=== PATIENT | female | born 1980 | race Caucasian/White ===

== ENCOUNTER 2022-09-13 09:56 | Day surgery (SDC) | payer BC ==
[~2022-09-13 09:56] MED LIST: DEXAMETHASONE SOD PHOSPHATE 4 MG/ML 1 ML VIAL IV ONE; DEXAMETHASONE SOD PHOSPHATE 4 MG/ML 1 ML VIAL IV PRN; FAMOTIDINE 20 MG/2 ML VIAL IV PRN; ONDANSETRON 4 MG/2 ML VIAL IVP ONE; ONDANSETRON 4 MG/2 ML VIAL IVP PRN; ceFAZolin 3 GM in SODIUM CHLORIDE 0.9% 100 ML IVPB PRN; metroNIDAZOLE-NS PMX 500 MG in SALINE 1 100ML.BAG IVPB PRN
[2022-09-13] MEDS: LACTATED RINGERS 1,000 ML IV SCH (10:30)
[2022-09-13 10:35] LABS: Basophils % (A) 1 %; Eosinophils # (A) 0.2 k/uL (0-0.7); Eosinophils % (A) 3 %; HCT 43.2 % (34.0-46.0); HGB 14.5 gm/dL (11.4-16.0); Lymphocytes # (A) 2.1 k/uL (1.0-4.8); Lymphocytes % (A) 35 %; MCH 29.4 pg (25.0-35.0); MCHC 33.6 g/dL (31.0-37.0); MCV 87.6 fL (80.0-100.0); Mean Platelet Volume 8.7; Monocytes # (A) 0.4 k/uL (0-1.0); Monocytes % (A) 6 %; Neutrophils # (A) 3.3 k/uL (1.3-7.7); Neutrophils % (A) 54 %; Platelet Count 215 k/uL (150-450); RBC 4.93 m/uL (3.80-5.40); RDW 12.7 % (11.5-15.5); WBC 6.1 k/uL (3.8-10.6)
[2022-09-13 10:46] LABS: ALT 18 U/L (4-34); AST 27 U/L (14-36); African American GFR (CKD) >90 (>60 ml/min/1.73 sqM); Albumin 4.7 g/dL (3.5-5.0); Alkaline Phosphatase 76 U/L (38-126); Anion Gap 13 mmol/L; Blood Urea Nitrogen 13 mg/dL (7-17); Calcium 9.1 mg/dL (8.4-10.2); Carbon Dioxide 26 mmol/L (22-30); Chloride 100 mmol/L (98-107); Glucose 97 mg/dL (74-99); Non-African American GFR(CKD) >90 (>60 ml/min/1.73 sqM); Potassium 4.3 mmol/L (3.5-5.1); Sodium 139 mmol/L (137-145); Total Bilirubin 1.3 mg/dL (0.2-1.3); Total Protein 7.8 g/dL (6.3-8.2)
[2022-09-13] MEDS ORDERED: MIDAZOLAM 2 MG/2 ML VIAL IVP ONE (10:50)
[2022-09-13] MEDS ORDERED: SCOPOLAMINE 1 MG/72 HR PATCH TRANSDERM ONE (10:50)
[2022-09-13] MEDS ORDERED: PROPOFOL 10 MG/ML 20 ML VIAL IV ONE (10:58)
[2022-09-13] MEDS ORDERED: fentaNYL (PF) 50 MCG/ML 2 ML AMP ONE (10:58)
[2022-09-13] MEDS ORDERED: KETAMINE 10 MG/ML 20 ML VIAL ONE (10:58)
[2022-09-13] MEDS ORDERED: SUCCINYLCHOLINE CHLORIDE 200 MG/10 ML VIAL IV ONE (10:58)
[2022-09-13] MEDS ORDERED: diphenhydrAMINE 50 MG/ML 1 ML VIAL ONE (10:58)
[2022-09-13] MEDS ORDERED: LIDOCAINE 2% INJ 20 MG/ML (2 ML VIAL) ONE (10:58)
[2022-09-13] MEDS ORDERED: LIDOCAINE 1%-EPI 1:100,000 20 ML VIAL SQ ONE (11:33)
[2022-09-13] MEDS ORDERED: GELATIN SPONGE,ABSORB (SMALL) 1 EACH SPONGE TOPICAL ONE (12:12)
[2022-09-13] MEDS: HYDROmorphone 0.5 MG/0.5 ML SYRINGE IVP PRN ×4 (13:01→15:03)
--- NOTE | 2022-09-13 13:07 | P.OP ---
Date of Procedure: 09/13/22 Preoperative Diagnosis: Thyroid mass i.e. [place] four moderately suspicious for malignancy Postoperative Diagnosis: Same Procedure(s) Performed: Partial thyroidectomy right side with isthmusectomy Anesthesia: LAYNEA Surgeon: Bradley Garg Estimated Blood Loss (ml): 5 Pathology: other (thyroid mass) Condition: stable Disposition: PACU Indications for Procedure: Patient was found have a over 3 cm thyroid mass underwent a needle biopsy demonstrating a [place] for category moderately suspicious for malignancy. Surgical removal is recommended. All risks, benefits, and alternative therapies were discussed in detail. Risks of bleeding, infection, need for secondary quick rgery, vocal cord paralysis, calcium abnormality hypoparathyroidism, scar, etc. etc. were all explained. All questions were answered. Consent was obtained Operative Findings: Thyroid mass noted Description of Procedure: Patient was taken to the operating room and placed in the supine position. A general inhalation anesthetic was administered and intubated with a laryngeal nerve monitor. Confirmation of nerve monitoring function of the recurrent laryngeal nerves was made and the nerves were monitored throughout the entire case with the [employer] nerve monitor. The neck was sterilely prepped and draped in usual fashion. The tumor was palpated. The neck was marked and anesthetized with lidocaine 1% with epinephrine 1 100,000. Curvilinear incision was made above the suprasternal notch and hemostasis was obtained with use of a LigaSure and electrocautery. Dissection was carried down to the strap muscles in the strap muscles were in the midline thyroid isthmus was identified. We dissected the thyroid superiorly and inferiorly. We identified the tumor and did a thyroid isthmusectomy on the left side of the isthmus. We then removed the right thyroid lobe subtotally and controlled bleeding with use of the LigaSure. Complete removal of tumor with cuff of tissue was ensured. The surgical site was reinspected and irrigated. A piece of Gelfoam was placed into the surgical site. No lymphadenopathy was noted. A wider cuff of right thyroid tissue was removed for specimen evaluation.. The strap muscles were closed with a 40 rapid Vicryl in an interrupted type fashion. The superficial layer of the deep cervical fascia was closed with a 4-0 PDS. The deep subcutaneous tissue was closed with a 4-0 Monocryl in the deep dermal layer was closed with 4-0 Monocryl. The skin was closed with a 50 rapid Vicryl in a running nonlocking fashion. Excellent approximation was obtained. The Steri-Strips were applied appropriately and the patient was taken to postanesthesia recovery in excellent condition
[2022-09-13] MEDS ORDERED: CITRIC ACID-SODIUM CITRATE 15 ML CUP PO ONE ×2 (13:28→13:35)
[2022-09-13] MEDS ORDERED: NITROGLYCERIN SL TABS 0.4 MG TAB SUBLINGUAL ONE (14:00)
[2022-09-13] MEDS ORDERED: LABETALOL 5 MG/ML VIAL MDV IVP ONE (14:12)
[2022-09-13] MEDS ORDERED: ASPIRIN 81 MG PO ONE (14:14)
--- NOTE | 2022-09-13 14:30 | XR ---
EXAMINATION TYPE: XR chest 1V portable DATE OF EXAM: 09/13/2022 Comparison: 08/26/2015 Clinical History: 42-year-old female chest pain postop Findings: Low lung volumes with crowded vascular markings. Increased interstitial density. Heart borderline in size. No brandt consolidation or pleural effusion seen. Impression: Limited by hypoventilatory changes. Interstitial prominence likely due to vascular and interstitial c rowding. No focal airspace disease. Consider follow-up after appropriate inspiratory effort.
[2022-09-13] MEDS ORDERED: lisinopriL 10 MG TAB PO STA (14:48)
[2022-09-13] MEDS ORDERED: ONDANSETRON 4 MG/2 ML VIAL IVP ONE (14:50)
--- NOTE | 2022-09-13 14:58 | P.CRDCN ---
History of Present Illness History of present illness: HISTORY OF PRESENTING ILLNESS This is a pleasant 42-year-old female past medical history significant for hypertension, thyroid mass. 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 We have been asked to see in consultation for chest pain. Patient presents to the hospital for planned Partial thyroidectomy right side with isthmusectomy secondary to thyroid mass suspicious for malignancy. Patient underwent procedure with Dr. Garg. Postoperatively patient was complaining of midsternal chest pressure across her chest. It was nonradiating, she's never had this pain before. She had no associated symptoms. She states that she's never had this pain before. She denies any shortness of breath, nausea, lightheadedness, dizziness. She was given an IV Dilaudid, Bicitra with no relief. She was given sublingual nitroglycerin which helped relieve her pain. Cardiology was consulted. EKG was performed which showed sinus rhythm, no STT wave abnormalities suggest acute ischemia. No changes from prior EKG preop. Patient's blood pressure was elevated systolic 150-170s. She does take lisinopril 10 mg at home, she is unsure what her blood pressures at home she does not check it at home. She denies any history of CAD, [place], stroke, seizures, diabetes. She is a nonsmoker. Family history includes her father had CABG. She denies any prior cardiac workup in the past. Labs: CBC unremarkable, sodium 139, potassium 4.3, BUN 13, serum creatinine 0.5 REVIEW OF SYSTEMS At the time of my exam: Patient's chest pain has resolved. CONSTITUTIONAL: Denies fever or chills. CARDIOVASCULAR: Denies chest pain, shortness of breath, orthopnea, PND or palpitations. RESPIRATORY: Denies cough. GASTROINTESTINAL: Denies abdominal pain, diarrhea, constipation, nausea or vomiting. MUSCULOSKELETAL: Denies myalgias. NEUROLOGIC: Denies numbness, tingling, headacbe or weakness. ENDOCRINE: Denies fatigue, weight change, polydipsia or polyurina. GENITOURINARY: Denies burning, hematuria or urgency with micturation. HEMATOLOGIC: Denies history of anemia or bleeding. PHYSICAL EXAMINATION Blood pressure 161/96, heart rate 81, afebrile, saturations 95% 2 L CONSTITUTIONAL: No apparent distress. HEENT: Head is normocephalic. Pupils are equal, round. Sclerae anicteric. Mucous membranes of the mouth are moist. No JVD. No carotid bruit. CHEST EXAMINATION: Lungs are clear to auscultation. No chest wall tenderness is noted on palpation or with deep breathing. HEART EXAMINATION: Regular rate and rhythm. S1, S2 heard. No murmurs, gallops or rub. ABDOMEN: Soft, nontender. Positive bowel sounds. EXTREMITIES: 2+ peripheral pulses, no lower extremity edema and no calf tenderness. NEUROLOGIC EXAMINATION: Patient is awake, alert and oriented x3. ASSESSMENT Chest pain post operatively Hypertension Status post Partial thyroidectomy right side with isthmusectomy Family history of coronary artery disease PLAN Obtain serial troponins Give lisinopril 10mg now Nitropaste Check lipid panel and hemoglobin A1C Obtain 2D echocardiogram and doppler study to assess cardiac structure and function. Recommend admission and observation overnight Further recommendations based on clinical course Nurse practitioner note has been reviewed by physician. Signing provider agrees with the documented findings, assessment, and plan of care. Past Medical History Past Medical History: Hypertension, Musculoskeletal Disorder, Sleep Apnea/CPAP/BIPAP, Thyroid Disorder Additional Past Medical History / Comment(s): VARICOSE VEINS, uses CPAP History of Any Multi-Drug Resistant Organisms: None Reported Past Surgical History: Back Surgery, Bariatric Surgery, Section, Cholecystectomy, Orthopedic Surgery, Tubal Ligation Additional Past Surgical History / Comment(s): C SECT X 2,LT FOOT SURG,WISDOM TEETH, gastric sleeve Past Anesthesia/Blood Transfusion Reactions: Family History of Problems w/ Anesthesia, Motion Sickness, Postoperative Nausea & Vomiting (PONV) Additional Past Anesthesia/Blood Transfusion Reaction / Comment(s): "DAD HAS PROBLEMS WITH ANESTHESIA STATES DOES NOT REMEMBER WHAT BUT REMEMBERS THERE WAS A COMPLICATION.", very difficult coming out of anesthesia & severe PONV per pt. Smoking Status: Never smoker - Past Family History Father Family Medical History: Coronary Artery Disease (CAD), Diabetes Mellitus Additional Family Medical History / Comment(s): CABG Mother Family Medical History: Pulmonary Embolus Medications and Allergies Home Medications Medication Instructions Recorded Confirmed Type Calcium,Magnesium,Zinc 1 tab PO DAILY 09/05/22 09/13/22 History Cholecalciferol [Vitamin D3 (125 125 mcg PO DAILY 09/05/22 09/13/22 History Mcg = 5000 Iu)] Fexofenadine HCl [Yu Allergy] 180 mg PO DAILY 09/05/22 09/13/22 History Multivitamins, Thera [Multivitamin 1 tab PO DAILY 09/05/22 09/13/22 History (formulary)] lisinopriL [Zestril] 10 mg PO DAILY 09/05/22 09/13/22 History Allergies Allergy/AdvReac Type Severity Reaction Status Date / Time No Known Allergies Allergy Verified 09/13/22 10:30 Physical Exam Vitals: Vital Signs Temp Pulse Resp BP Pulse Ox 09/13/22 14:30 69 14 153/88 95 09/13/22 14:15 70 14 148/85 93 L 09/13/22 13:50 81 14 161/96 09/13/22 13:35 74 14 166/98 97 09/13/22 13:20 66 14 163/95 99 09/13/22 13:04 72 14 170/92 99 09/13/22 12:49 81 16 166/87 97 09/13/22 10:51 98 F 79 16 153/76 96 09/13/22 10:04 68 14 170/92 99 Intake and Output 09/12/22 09/13/22 09/13/22 22:59 06:59 14:59 Intake Total 900 Output Total 5 Balance 895 Intake: IV 900 Output: Estimated Blood Loss 5 Other: Weight 155.8 kg Results 09/13/22 10:27 09/13/22 10:30 Cardiac Enzymes 09/13/22 Range/Units 10:30 AST 27 (14-36) U/L CBC 09/13/22 Range/Units 10:27 WBC 6.1 (3.8-10.6) k/uL RBC 4.93 (3.80-5.40) m/uL Hgb 14.5 (11.4-16.0) gm/dL Hct 43.2 (34.0-46.0) % Plt Count 215 (150-450) k/uL Comprehensive Metabolic Panel 09/13/22 Range/Units 10:30 Sodium 139 (137-145) mmol/L Potassium 4.3 (3.5-5.1) mmol/L Chloride 100 (98-107) mmol/L Carbon Dioxide 26 (22-30) mmol/L BUN 13 (7-17) mg/dL Creatinine 0.55 (0.52-1.04) mg/dL Glucose 97 (74-99) mg/dL Calcium 9.1 (8.4-10.2) mg/dL AST 27 (14-36) U/L ALT 18 (4-34) U/L Alkaline Phosphatase 76 (38-126) U/L Total Protein 7.8 (6.3-8.2) g/dL Albumin 4.7 (3.5-5.0) g/dL Current Medications Generic Name Dose Route Start Last Admin Trade Name Daleq PRN Reason Stop Dose Admin Dexamethasone Sodium Phosphate 20 mg 09/13/22 05:00 Dexamethasone Sod Phosphate 4 Mg/Ml 1 Ml Vial IV 09/14/22 00:01 ONCE PRN pre-op Hydromorphone HCl 0.5 mg 09/13/22 06:19 09/13/22 13:31 Hydromorphone 0.5 Mg/0.5 Ml Syringe IVP 09/14/22 06:20 0.5 mg Q5M PRN Administration Phase 1 or 2 - Pain Control Metronidazole 500 mg/ IV 100 mls @ 100 mls/hr 09/13/22 05:00 Solution IVPB 09/13/22 20:00 ONCE PRN PRE-OP Lactated Ringer's 1,000 mls @ 20 mls/hr 09/13/22 06:19 09/13/22 10:30 Lactated Ringers IV 10/13/22 06:20 800 mls .Q24H LACEY Administration Lisinopril 20 mg 09/14/22 09:00 Lisinopril 20 Mg Tab PO 10/14/22 09:01 DAILY LACEY Ondansetron HCl 4 mg 09/13/22 05:00 Ondansetron 4 Mg/2 Ml Vial IVP 09/14/22 00:01 ONCE PRN pre-op Intake and Output 09/12/22 09/13/22 09/13/22 22:59 06:59 14:59 Intake Total 900 Output Total 5 Balance 895 Intake: IV 900 Output: Estimated Blood Loss 5 Other: Weight 155.8 kg Patient Weight 09/14/22 06:59 Weight 155.8 kg 09/13/22 10:27 09/13/22 10:30
[2022-09-13] MEDS: lisinopriL 20 MG TAB PO SCH (15:03)
[2022-09-13] MEDS ORDERED: LACTATED RINGERS 1,000 ML IV ONE (15:04)
[2022-09-13] MEDS: NITROGLYCERIN OINT 1 INCH/GM PACKET TOPICAL SCH (15:24)
[2022-09-13] MEDS ORDERED: HYDROmorphone 0.5 MG/0.5 ML SYRINGE IVP ONE (16:26)
[2022-09-13] MEDS ORDERED: METOCLOPRAMIDE 5 MG/ML 2 ML VIAL IVP ONE (16:37)
[2022-09-13] MEDS ORDERED: oxyCODONE-APAP 5-325MG 1 EACH TAB PO PRN ×2 (16:44→16:47)
[2022-09-13] MEDS ORDERED: ONDANSETRON 4 MG/2 ML VIAL IVP PRN (18:32)
[2022-09-13] MEDS: AMOXIC-POT CLAV 875-125MG 1 EACH TAB PO SCH (21:09)
[2022-09-13 23:43] LABS: Chol/HDL Ratio 3.77 Ratio; LDL Cholesterol,Calculated 143.8 mg/dL (0.0-131.0); VLDL Calculation 11.92 mg/dL (5.00-40.00)
[2022-09-14] MEDS: oxyCODONE-APAP 5-325MG 1 EACH TAB PO PRN ×2 (01:09→07:41)
[2022-09-14] MEDS: NITROGLYCERIN OINT 1 INCH/GM PACKET TOPICAL SCH ×2 (01:10→07:39)
[2022-09-14 03:25] VITALS: RESP 18
[2022-09-14] MEDS: LACTATED RINGERS 1,000 ML IV SCH (05:24)
[2022-09-14] MEDS: lisinopriL 20 MG TAB PO SCH (07:39)
[2022-09-14] MEDS: AMOXIC-POT CLAV 875-125MG 1 EACH TAB PO SCH (07:39)
[2022-09-14 08:34] VITALS: BP 146/89; PULSE 81; TEMP 98.2
--- NOTE | 2022-09-14 10:14 | P.PN ---
Subjective Progress Note Date: 09/14/22 HISTORY OF PRESENT ILLNESS: This is a pleasant 42-year-old female past medical history significant for hypertension, thyroid mass. 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 We have been asked to see in consultation for chest pain. Patient presents to the hospital for planned Partial thyroidectomy right side with isthmusectomy secondary to thyroid mass suspicious for malignancy. Patient underwent procedure with Dr. Garg. Postoperatively patient was complaining of m idsternal chest pressure across her chest. It was nonradiating, she's never had this pain before. She had no associated symptoms. She states that she's never had this pain before. She denies any shortness of breath, nausea, lightheadedness, dizziness. She was given an IV Dilaudid, Bicitra with no relief. She was given sublingual nitroglycerin which helped relieve her pain. Cardiology was consulted. EKG was performed which showed sinus rhythm, no STT wave abnormalities suggest acute ischemia. No changes from prior EKG preop. Patient's blood pressure was elevated systolic 150-170s. She does take lisinopril 10 mg at home, she is unsure what her blood pressures at home she does not check it at home. She denies any history of CAD, [place], stroke, seizures, diabetes. She is a nonsmoker. Family history includes her father had CABG. She denies any prior cardiac workup in the past. 09/14/2022 Patient examined this morning at the bedside. Patient denies chest pain or pressure. Denies SOB. Patients LDL is 143. Patient's blood pressure ranging between 140 and 150 systolic. PHYSICAL EXAM: VITAL SIGNS: Reviewed. GENERAL: Well-developed in no acute distress. NECK: Supple. No JVD or thyromegaly LUNGS: Respirations even and unlabored. Lungs essentially clear to auscultation bilaterally. HEART: Regular rate and rhythm. S1 and S2 heard. EXTREMITIES: Normal range of motion. No clubbing or cyanosis. Peripheral pulses intact. No lower extremity edema ASSESSMENT: Chest pain post operatively Hypertension Status post Partial thyroidectomy right side with isthmusectomy Family history of coronary artery disease Hyperlipidemia PLAN: An cute coronary and has been ruled out Discontinue nitro paste Add atorvastatin 20 mg at night Continue current dose of lisinopril 20 mg daily Patient is stable for discharge home today from a cardiac standpoint. She'll follow up on an outpatient basis. If blood pressure remains elevated at her follow-up appointment, her dose of lisinopril will be adjusted We will sign off. Please reconsult if needed. Nurse practitioner note has been reviewed by physician. Signing provider agrees with the documented findings, assessment, and plan of care. Objective - Vital Signs Vital signs: Vital Signs Temp 98.0 F 09/14/22 01:17 Pulse 74 09/14/22 01:17 Resp 18 09/14/22 01:17 BP 152/76 09/14/22 01:17 Pulse Ox 94 L 09/14/22 01:17 FiO2 Intake & Output 09/13/22 09/14/22 09/14/22 18:59 06:59 18:59 Intake Total 1100 Output Total 5 Balance 1095 Weight 155.8 kg Intake: IV 1100 Output: Estimated Blood Loss 5 Other: Voiding Method Toilet # Voids 1 - Labs CBC & Chem 7: 09/13/22 10:27 09/13/22 10:30 Labs: Abnormal Lab Results - Last 24 Hours (Table) 09/13/22 Range/Units 17:34 Cholesterol 212.00 H (0.00-200.00) mg/dL LDL Cholesterol, Calc 143.8 H (0.0-131.0) mg/dL
--- NOTE | 2022-09-14 12:45 | CA ---
Transthoracic Echo Report Name: Emma Garzon Age: 42 Gender: F : 1980 Exam Date: 09/14/2022 09:58 Exam Location: [facility] Ht (in): 68 Wt (lb): 350 Ordering Physician: Gina Randall Attending/Referring Phys: Penology Professor Jennifer Licea, LUDMILA Procedure CPT: Indications: chest discomfort after surgery Cardiac Hx: Technical Quality: Contrast 1: Total Dose (mL): Contrast 2: Total Dose (mL): MEASUREMENTS (Male / Female) Normal Values 2D ECHO LV Diastolic Diameter PLAX 3.7 cm 4.2 - 5.9 / 3.9 - 5.3 cm LV Systolic Diameter PLAX 2.8 cm IVS Diastolic Thickness 1.3 cm 0.6 - 1.0 / 0.6 - 0.9 cm LVPW Diastolic Thickness 1.7 cm 0.6 - 1.0 / 0.6 - 0.9 cm LV Relative Wall Thickness 0.8 RV Internal Dim ED PLAX 3.0 cm M-MODE Aortic Root Diameter MM 2.6 cm LA Systolic Diameter MM 3.4 cm LA Ao Ratio MM 1.3 MV E Point Septal Separation 0.3 cm AV Cusp Separation MM 2.0 cm DOPPLER MV Area PHT 3.4 cm??? Mitral E Point Velocity 74.0 cm/s Mitral A Point Velocity 63.1 cm/s Mitral E to A Ratio 1.2 MV Deceleration Time 221.3 ms MV E' Velocity 11.5 cm/s Mitral E to MV E' Ratio 6.4 TR Peak Velocity 202.6 cm/s TR Peak Gradient 16.4 mmHg Right Ventricular Systolic Press 21.4 mmHg FINDINGS Left Ventricle Left ventricular ejection fraction is estimated at 50-55%. Moderately increased left ventricular wall thickness. Right Ventricle Normal right ventricular size. Right ventricular systolic pressure within normal limits. Right Atrium Normal right atrial size. Left Atrium Normal left atrial size. Mitral Valve Structurally normal mitral valve. Mild mitral regurgitation. Aortic Valve Trileaflet aortic valve. Tricuspid Valve Structurally normal tricuspid valve. Pulmonic Valve Pulmonic valve not well visualized. Pericardium Normal pericardium. Aorta Normal size aortic root and proximal ascending aorta. CONCLUSIONS LVH with preserved systolic function Previewed by: Dr. Zurdo Ford MD (Electronically Signed) Final Date: 14 September 2022 12:44
--- NOTE | 2022-09-14 13:00 | P.CONS ---
History of Present Illness - Reason for Consult Consult date: 09/14/22 Medical management Requesting physician: Bradley Garg - Chief Complaint Chest pain - History of Present Illness This is a pleasant 42-year-old patient who follows Dr. Martin. Chronic stable medical conditions include obstructive sleep apnea uses CPAP, hypertension, had bariatric surgery lost about 50 pounds, anxiety depression. Patient right thyroid lobe biopsy showed questionable for malignancy and patient is undergoing right lobe lobectomy and removal of the isthumus. Surgery was carried out by Dr. Bradley from ENT. Yesterday evening in the recovery time patient felt a pressure of the chest has some very sitting there. Also had some nausea. Patient is given nitro and had relief of pain to the same. Denies any prior cardiac history. Cardiology to was consulted. Raised on telemetry. This morning patient not having any chest pain. Feels comfortable. Slight discomfort in the throat. Able to swallow food. No fever no chills. Patient had elevated blood pressure. Lisinopril was started by currently. Review of systems: GEN.: None EYES: None HEENT: As above NECK: None RESPIRATORY: None CARDIOVASCULAR: [As above GASTROINTESTINAL: None GENITOURINARY: None MUSCULOSKELETAL: None LYMPHATICS: None HEMATOLOGICAL: None PSYCHIATRY: None NEUROLOGICAL: None Past medical history to include: Obstructive sleep apnea, hypertension, bariatric surgery with 50 pound weight loss, anxiety depression, morbid obesity Social history: Does not smoke. No alcohol. . 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 EYES: Pupils equal. Conjunctiva normal. HEENT: External appearance of nose and ears normal, oral cavity grossly normal. Dressing over the incision site NECK: JVD not raised; masses not palpable. HEART: First and second heart sounds are normal; no edema. LUNGS: Respiratory rate normal; clear to auscultation. ABDOMEN: Soft, nontender, liver spleen not palpable, no masses palpable. PSYCH: Alert and oriented x3; mood and affect normal. MUSCULOSKELETAL:No Clubbing/cyanosis;muscles-grossly intact NEUROLOGICAL: Cranial nerves grossly intact; no facial asymmetry, power and sensation grossly intact. LYMPHATICS: No lymph nodes palpable in the axilla and neck INVESTIGATIONS, reviewed in the clinical context: Triglycerides 59 LDL 143 sodium 139 potassium 4.3 creatinine 0.55 Troponin I 3: Negative WBC 6.1 hemoglobin 14.5 platelets 215 2-D echocardiogram: EF 50-75%. Moderate left ventricular wall thickness. EKG tracing: Sinus rhythm. No ST segment changes. Assessment and plan: -Anterior chest wall pain. Relieved with nitroglycerin. Associated with limited blood pressure. Telemetry. Troponin negative. Cardiology consulted. -Essential hypertension Started on lisinopril 20 mg -Hyperlipidemia Lipitor -Morbid obesity BMI 52.2 Patient status post electric surgery/sleeve. Has lost about 50 pounds -Right thyroid lobectomy and removal ofisthumus Follow-up with ENT. Patient started on lisinopril and Lipitor. Other medications to continue. Patient to follow-up with Dr. Martin upon discharge. And cardiology. Care was discussed with the patient. Questions answered. Thank you Dr. ramsey 9 or Past Medical History Past Medical History: Hypertension, Musculoskeletal Disorder, Sleep Apnea/CPAP/BIPAP, Thyroid Disorder Additional Past Medical History / Comment(s): VARICOSE VEINS, uses CPAP History of Any Multi-Drug Resistant Organisms: None Reported Past Surgical History: Back Surgery, Bariatric Surgery, Section, Cholecystectomy, Orthopedic Surgery, Tubal Ligation Additional Past Surgical History / Comment(s): C SECT X 2,LT FOOT SURG,WISDOM TEETH, gastric sleeve Past Anesthesia/Blood Transfusion Reactions: Family History of Problems w/ Anesthesia, Motion Sickness, Postoperative Nausea & Vomiting (PONV) Additional Past Anesthesia/Blood Transfusion Reaction / Comm: "DAD HAS PROBLEMS WITH ANESTHESIA STATES DOES NOT REMEMBER WHAT BUT REMEMBERS THERE WAS A COMPLICATION.", very difficult coming out of anesthesia & severe PONV per pt. Past Psychological History: Anxiety, Depression Smoking Status: Never smoker Past Alcohol Use History: Rare Past Drug Use History: None Reported - Past Family History Father Family Medical History: Coronary Artery Disease (CAD), Diabetes Mellitus Additional Family Medical History / Comment(s): CABG Mother Family Medical History: Pulmonary Embolus Medications and Allergies Home Medications Medication Instructions Recorded Confirmed Type Calcium,Magnesium,Zinc 1 tab PO DAILY 09/05/22 09/13/22 History Cholecalciferol [Vitamin D3 (125 125 mcg PO DAILY 09/05/22 09/13/22 History Mcg = 5000 Iu)] Fexofenadine HCl [Yu Allergy] 180 mg PO DAILY 09/05/22 09/13/22 History Multivitamins, Thera [Multivitamin 1 tab PO DAILY 09/05/22 09/13/22 History (formulary)] Atorvastatin [Lipitor] 20 mg PO HS #90 tab 09/14/22 Rx lisinopriL [Zestril] 20 mg PO DAILY #90 tab 09/14/22 Rx Allergies Allergy/AdvReac Type Severity Reaction Status Date / Time No Known Allergies Allergy Verified 09/13/22 10:30 Physical Exam Vitals: Vital Signs Temp Pulse Resp BP BP Pulse Ox 09/14/22 07:00 98.2 F 81 18 146/89 94 L 09/14/22 01:17 98.0 F 74 18 152/76 94 L 09/13/22 20:27 81 132/72 94 L 09/13/22 19:12 97.7 F 76 16 150/72 92 L 09/13/22 18:57 80 16 132/72 96 09/13/22 18:15 74 17 147/79 96 09/13/22 16:47 97.9 F 85 18 152/74 96 09/13/22 16:30 88 14 136/75 95 09/13/22 16:00 78 12 166/78 95 09/13/22 15:30 77 14 158/83 97 09/13/22 15:00 70 14 161/91 95 09/13/22 14:45 91 14 155/83 95 09/13/22 14:30 69 14 153/88 95 09/13/22 14:15 70 14 148/85 93 L 09/13/22 13:50 81 14 161/96 09/13/22 13:35 74 14 166/98 97 09/13/22 13:20 66 14 163/95 99 09/13/22 13:04 72 14 170/92 99 09/13/22 12:49 81 16 166/87 97 09/13/22 10:51 98 F 79 16 153/76 96 Intake and Output 09/13/22 09/14/22 09/14/22 22:59 06:59 14:59 Other: Voiding Method Toilet Toilet # Voids 2 1 Weight 155.8 kg Results CBC & Chem 7: 09/13/22 10:27 09/13/22 10:30 Labs: Abnormal Lab Results - Last 24 Hours (Table) 09/13/22 Range/Units 17:34 Cholesterol 212.00 H (0.00-200.00) mg/dL LDL Cholesterol, Calc 143.8 H (0.0-131.0) mg/dL
[2022-09-14] MEDS ORDERED: ATORVASTATIN 20 MG TAB PO SCH (21:00)
== END 2022-09-14 12:29 | disposition home or self-care (01) ==
LOC: OR 09:56 → 6NMEDSUR 12:34 → OR 09-14 12:29
PROVIDERS: ATTEND Otolaryngology
DX: E04.1 Nontoxic single thyroid nodule (principal); I10 Essential (primary) hypertension; F32.A Depression, unspecified; G47.30 Sleep apnea, unspecified; E66.9 Obesity, unspecified; J30.1 Allergic rhinitis due to pollen; J37.0 Chronic laryngitis; Z98.51 Tubal ligation status; Z98.891 History of uterine scar from previous surgery
CPT/HCPCS: 93306; 81025; 88305; 80061; 80053; 84484 ×2; 85025; 88307; 83036; 71045; 60210; J2250; J0330; J1200; J1100; J2765; J0690; J2405; J3010; J2704; J1170; J2001

== ENCOUNTER → 2024-02-28 | Outpatient (CLI) | payer BC ==
[2024-02-28 16:03] LABS: Basophils # (A) 0.03 X 10*3/uL (0.00-0.10); Basophils % (A) 0.6 %; Eosinophils # (A) 0.11 X 10*3/uL (0.04-0.35); Eosinophils % (A) 2.1 %; HCT 40.5 % (37.2-46.3); HGB 12.8 g/dL (12.0-15.0); Lymphocytes # (A) 1.75 X 10*3/uL (0.90-5.00); Lymphocytes % (A) 33.8 %; MCH 27.8 pg (27.0-32.0); MCHC 31.6 g/dL (32.0-37.0); MCV 87.9 FL (80.0-97.0); Mean Platelet Volume 10.4 FL (9.5-12.2); Monocytes # (A) 0.39 X 10*3/uL (0.20-1.00); Monocytes % (A) 7.5 %; NRBC Per 100 WBC 0 X 10*3/uL (0.00-0.01); Neutrophils # (A) 2.88 X 10*3/uL (1.80-7.70); Neutrophils % (A) 55.6 %; Platelet Count 260 X 10*3/uL (140-440); RBC 4.61 X 10*6/uL (4.10-5.20); RDW 13.1 % (11.5-14.5); WBC 5.18 X 10*3/uL (4.50-10.00)
[2024-02-28 16:34] LABS: Blood Urea Nitrogen 11.2 mg/dL (9.0-27.0); Carbon Dioxide 26.9 mmol/L (21.6-31.8); Chloride 101 mmol/L (96-109); Glucose 92 mg/dL (70-110); Sodium 140 mmol/L (135-145)
== END | disposition home or self-care (01) ==
LOC: LABWHC1 10:51
PROVIDERS: ATTEND Obstetrics & Gynecology
DX: Z01.812 Encounter for preprocedural laboratory examination (principal); N94.6 Dysmenorrhea, unspecified; N93.8 Other specified abnormal uterine and vaginal bleeding
CPT/HCPCS: 36415; 80051; 82565; 82947; 84520; 85025; 86850; 86900; 86901; 87086

== ENCOUNTER 2024-03-09 05:50 | Observation (INO) | payer BC ==
--- NOTE | 2024-03-05 17:15 | P.HPIHPCON ---
History of Present Illness H&P Date: 03/05/24 Chief Complaint: Abnormal uterine bleeding Ms. Garzon is a 43 year old with abnormal bleeding, dysmenorrhea. She is status post endometrial ablation 5 years ago which is no longer effective for her. On ultrasound, the patient has a 12.3 x 6.3 x 6.4 cm anteverted uterus with friboids. Bilateral ovaries were within normal limits. The patient desires definitive management with hysterectomy. Consent for Procedure: I have explained the operation/procedure to the patient, including the risks, benefits, side effects, alternative therapies (including not receiving the proposed treatment or service), the likelihood of the patient achieving his/her goals, and potential recuperation problems for the procedure/sedation/analgesia, as well as any blood products, if indicated. I also explained to the patient the risks, benefits and side effects of the alternatives, as well as the risks related to not receiving the proposed procedure, care, treatment, or services. Past Medical History Past Medical History: GERD/Reflux, Hypertension, Sleep Apnea/CPAP/BIPAP, Thyroid Disorder Additional Past Medical History / Comment(s): VARICOSE VEINS, uses CPAP, past hx thyroid nodules. season allergies History of Any Multi-Drug Resistant Organisms: None Reported Past Surgical History: Back Surgery, Bariatric Surgery, Section, Cholecystectomy, Orthopedic Surgery, Tubal Ligation Additional Past Surgical History / Comment(s): C SECT X 2,LT FOOT SURG,WISDOM TEETH, gastric sleeve, PARTIAL THYROIDECTOMY Past Anesthesia/Blood Transfusion Reactions: Family History of Problems w/ Anesthesia, Motion Sickness, Postoperative Nausea & Vomiting (PONV) Additional Past Anesthesia/Blood Transfusion Reaction / Comment(s): "DAD HAS PROBLEMS WITH ANESTHESIA STATES DOES NOT REMEMBER WHAT BUT REMEMBERS THERE WAS A COMPLICATION.", Pt has very difficult time coming out of anesthesia & severe PONV Smoking Status: Never smoker - Past Family History Father Family Medical History: Coronary Artery Disease (CAD), Diabetes Mellitus Additional Family Medical History / Comment(s): CABG Mother Family Medical History: Deep Vein Thrombosis (DVT), Pulmonary Embolus Medications and Allergies Home Medications Medication Instructions Recorded Confirmed Type Citalopram Hydrobromide [CeleXA] 20 mg PO DAILY 03/04/24 03/04/24 History Famotidine [Pepcid] 20 mg PO DAILY 03/04/24 03/04/24 History Fexofenadine HCl [Yu Allergy] 180 mg PO DAILY PRN 03/04/24 03/04/24 History Lisdexamfetamine Dimesylate 70 mg PO QAM 03/04/24 03/04/24 History [Vyvanse] Unk Multi Vitamin 1 tab PO DAILY 03/04/24 03/04/24 History Unk Tylenol 1 tab PO DIRECTED PRN 03/04/24 03/04/24 History lisinopriL [Zestril] 40 mg PO DAILY 03/04/24 03/04/24 History Allergies Allergy/AdvReac Type Severity Reaction Status Date / Time No Known Allergies Allergy Verified 03/04/24 12:09 Surgical - Exam Focused physical exam is performed. this is a healthy-appearing female in no apparent distress. Breathing is non-labored. Abdomen is non-tender. Extremities are non-tender and non-edematous. Assessment and Plan Assessment: 43 year old dysmenorrhea and AUB presenting for definitive management with Robotic Assisted Total Laparoscopic Hysterectomy, Bilateral Salpingectomy, and Cystocopy Plan: The risks, benefits, and alternatives to Robotic Assisted Total Laparoscopic Hysterectomy, Bilateral Salpingectomy, and Cystocopy were discussed with the patient including risk of bleeding, infection, damage to surrounding structures including bladder/bowel/ureter, risk of laparotomy, risk of oophrectomy, and risk of post-operative VTE. The patient understands these risks and desires to proceed with surgery as scheduled.
[2024-03-09] MEDS ORDERED: LIDOCAINE 1% (10MG/ML) FOR IV START INTRADERMA PRN (06:12)
[2024-03-09] MEDS ORDERED: MIDAZOLAM 2 MG/2 ML VIAL IV PRN (06:12)
[2024-03-09] MEDS: LACTATED RINGERS 1,000 ML IV SCH ×2 (06:30→20:40)
[2024-03-09] MEDS: ONDANSETRON 4 MG/2 ML VIAL IVP ONE (06:48)
[2024-03-09] MEDS: SCOPOLAMINE 1 MG/72 HR PATCH TRANSDERM ONE (06:48)
[2024-03-09] MEDS: DEXAMETHASONE SOD PHOSPHATE 4 MG/ML 1 ML VIAL IV ONE (06:48)
[2024-03-09] MEDS ORDERED: diphenhydrAMINE 50 MG/ML 1 ML VIAL ONE (06:54)
[2024-03-09] MEDS: diphenhydrAMINE 50 MG/ML 1 ML VIAL IVP ONE (07:03)
[2024-03-09] MEDS: MIDAZOLAM 2 MG/2 ML VIAL IVP ONE (07:03)
[2024-03-09] MEDS: fentaNYL (PF) 50 MCG/ML 2 ML AMP IVP ONE (07:05)
[2024-03-09] MEDS ORDERED: PROPOFOL 10 MG/ML 20 ML VIAL IV ONE (07:22)
[2024-03-09] MEDS ORDERED: HYDROmorphone (PF) 1 MG/ML ONE (07:22)
[2024-03-09] MEDS ORDERED: ROCURONIUM 10 MG/ML (5 ML VIAL) IV ONE (07:22)
[2024-03-09] MEDS ORDERED: LIDOCAINE 1% INJ 10MG/ML (20 ML MDV) ONE (07:22)
[2024-03-09] MEDS ORDERED: MORPHINE SULFATE (PF) 0.3 MG/0.3 ML SYR ONE (07:22)
[2024-03-09] MEDS ORDERED: SUCCINYLCHOLINE CHLORIDE 200 MG/10 ML VIAL IV ONE (07:22)
[2024-03-09] MEDS ORDERED: NEOSTIGMINE 1 MG/ML 10 ML VIAL ONE (07:22)
[2024-03-09] MEDS ORDERED: fentaNYL (PF) 50 MCG/ML 2 ML AMP ONE (07:22)
[2024-03-09] MEDS ORDERED: GLYCOPYRROLATE 0.2 MG/ML 2 ML VIAL ONE (07:22)
--- NOTE | 2024-03-09 07:22 | P.ANPRN ---
Procedure Note - Anesthesia - Epidural/Spinal Spinal Time Out Performed: Yes Date of Procedure: 03/09/24 Procedure Start Time: 07:03 Procedure Stop Time: 07:08 Location of Patient: PreOp Sedation Type: Sedate with meaningful contact maintained Preparation: Sterile Prep Position: Sitting Catheter: None Needle Guage: 22 Narrative: Duramorph 0.3 mg intrathecally. At L3-4 level above surgical site. Negative blood, paresthesia. 25 g needle was not long enough. Used 22G needle. Discussed about complications including possibility of head ache. Blood Aspirated: No Pain Paresthesia on Injection Noted: No Events: Uneventful and Well Tolerated
[2024-03-09] MEDS: ceFAZolin 3 GM in SODIUM CHLORIDE 0.9% 100 ML IVPB PRN (07:30)
[2024-03-09] MEDS: BUPIVACAINE (PF) 0.25% 30 ML VIAL SQ ONE ×2 (08:14→09:53)
[2024-03-09] MEDS: LACTATED RINGERS 1,000 ML IV ONE (08:40)
[2024-03-09] MEDS ORDERED: NALOXONE 0.4 MG/ML 1 ML VIAL IV PRN (08:48)
[2024-03-09] MEDS ORDERED: SIMETHICONE 80 MG CHEWABLE PO PRN (10:04)
[2024-03-09] MEDS ORDERED: IBUPROFEN 600 MG TAB PO PRN (10:04)
[2024-03-09] MEDS: MEPERIDINE 50 MG/ML SYRINGE IVP ONE (10:20)
--- NOTE | 2024-03-09 10:21 | P.OP ---
Date of Procedure: 03/09/24 Preoperative Diagnosis: 1. Dysmenorrhea 2. Abnormal Uterine Bleeding 3. Uterine Fibroids 4. Failed Endometrial Ablation Postoperative Diagnosis: Same Procedure(s) Performed: Robotic Assisted Total Laparoscopic Hysterectomy, Cytoscopy Implants: None Anesthesia: SHANNA Surgeon: Gracie Ernandez Material Inspector #1: Umuzehra Perera Estimated Blood Loss (ml): 150 IV fluids (ml): 1,000 Urine output (ml): 350 (clear yellow) Pathology: other (uterus, cervix) Condition: stable Disposition: floor Indications for Procedure: Ms. Garzon is a 43 year old with dysmenorrhea, abnormal uterine bleeding, uterine fibroids, and history of a failed endometrial ablation who presents today for definitive management with RATLH, Cystoscopy. The risks, benefits, and alternatives to surgery were discussed with the patient including the risk of bleeding, infection, damage to surrounding structures including bladder/bowel/ureters, and post-operative VTE. The patient understands these risks and desires to proceed with surgery as scheduled. Operative Findings: Bulky, slightly enlarged anteverted uterus that sounds to 11cm. Bilateral fallopian tubes are surgically absent from prior tubal ligation. There is a small endometrioma on the right ovary, 2cm. Left ovary unremarkable. There is a moderate degree of adhesive disease in the anterior cul-de-sac from prior sections. Otherwise, the pelvis and abdomen are unremarkable. Description of Procedure: Prior to the beginning of the procedure, the team paused to verify the patients identity, the procedure to be performed (in accordance with the consent,) and the correct side/site. The patient was positioned appropriately. All relevant images and results were properly labeled and displayed. We addressed antibiotic prophylaxis and fluids for irrigation as applicable to this patient. Any safety precautions were addressed. The patient was taken to the operating room where ge neral anesthesia was induced without difficulty. She was then positioned in the dorsal lithotomy position in Prasanna stirrups. Positioning included placing her arms at her sides. After the patient was placed in what was felt to be a neurologically safe position, deep Trendelenburg position was tested prior to the operative procedure, to ensure that she would not move on the operating table. The patient was then prepped and draped in the normal sterile fashion for a combined abdominovaginal surgery. A Vides catheter was placed in the bladder for continuous drainage. Uterus was sounded to 11 cm. V-Care manipulator was placed in the uterus for manipulation. Attention was then placed to the abdomen. The 8mm por was placed at the umbilical site under direct laparoscopic visualization and there was no evidence of injury from trocar placement. Low pressure was noted confirming appropriate placement. The abdomen was then insufflated to 12mmHg for the remainder of the case as the patient was obese and unable to tolerate 15mmHg. Visualization of the intraabdominal cavity showed normal pelvic anatomy with moderate adhesions in the anterior cul de sac between bladder and uterus and from the uterus to the left pelvic side wall. The port sites for the remainder of the case were then measured out and placed under direct visualization. On the left side, one 8 mm robotic assist port and one 10 mm assist port were placed. On the right side, one 8 mm robotic port was placed. The 27 bardsi robot was then brought to the operative field in a lateral docking style to the left of the patient and the robot was docked to the ports. All robotic instruments were brought into the pelvis under direct visualization with monopolar scissors in arm #3 and vessel sealer in arm #1. The right uteroovarian ligement was cauterized and cut. The right round ligament was cauterized and cut. Broad ligament was opened and bladder flap created. This was repeated on the left side with the vessel sealer. The peritoneum of the bilateral broad ligaments was then taken down and monopolar cautery used to skeletonize the uterine arteries bilaterally. During the course of this dissection, the anterior leaf of the broad ligament was also taken down over the anterior aspect of the uterus and cervix to create a bladder flap. The bladder was then dissected off the cervix and upper vagina with the monopolar scissors and gentle blunt dissection. The bilateral uterine arteries were then cauterized and divided at the level of the internal cervical os. The monopolar cautery was used to incise the vaginal cuff. The uterus, along with the cervix was removed vaginally. Cuff was closed in with 0-Stratifix sutures. Excellent hemostasis was noted at this time. A 70 degree cystoscopy was performed which confirmed no suture placement within the bladder, no trauma to the bladder. Good efflux was noted from both ureteric orifices. The robot was undocked from the trocars and brought out of the operative field. The remainder of the ports were removed, and the gas was allowed to escape. All skin incisions were infiltrated with lidocaine and closed with 4-0 Monocryl and dermabond. Hemostasis was noted to be excellent thr oughout, and final sponge, instrument, and needle count was noted to be correct. The patient was moved back to the preoperative holding area in stable condition having tolerated the procedure well.
[2024-03-09] MEDS: HYDROmorphone 0.5 MG/0.5 ML SYRINGE IVP PRN (10:34)
[2024-03-09] MEDS: KETOROLAC 15 MG/ML 1 ML VIAL IVP PRN (20:42)
[2024-03-09 21:35] LABS: ALT 27 U/L (4-34); AST 29 U/L (14-36); African American GFR (CKD) 37 (>60 ml/min/1.73 sqM); Albumin 3.5 g/dL (3.5-5.0); Alkaline Phosphatase 70 U/L (38-126); Anion Gap 4 mmol/L; Blood Urea Nitrogen 21 mg/dL (7-17); Calcium 8.2 mg/dL (8.4-10.2); Carbon Dioxide 28 mmol/L (22-30); Chloride 105 mmol/L (98-107); Glucose 116 mg/dL (74-99); Non-African American GFR(CKD) 32 (>60 ml/min/1.73 sqM); Potassium 5.3 mmol/L (3.5-5.1); Sodium 137 mmol/L (137-145); Total Protein 6.3 g/dL (6.3-8.2)
[2024-03-09 22:14] LABS: ABG Base Excess 0.8 mmol/L; ABG HCO3 25 mmol/L (21-25); ABG Oxygen Saturation 99.9 % (94-97); ABG PCO2 39 mmHg (35-45); ABG PH 7.42 (7.35-7.45); ABG PO2 225 mmHg (83-108); ABG TCO2 27 mmol/L (19-24); Allen Test Performed? Yes
--- NOTE | 2024-03-09 22:50 | P.CONS ---
History of Present Illness - Reason for Consult Consult date: 03/09/24 Medical management Requesting physician: Gracie Ernandez - Chief Complaint Hypoxia - History of Present Illness This is a 43-year-old patient, follows with [facility], with Dr. Martin. Chronic stable medical conditions include GERD, hypertension, depression, ADHD,. Has been diagnosed obstructive sleep apnea 5 years ago does use a CPAP machine. Patient for dysfunctional uterine bleeding has underwent robotic assisted total laparoscopic hysterectomy and cystoscopy. Patient also had uterine fibroids and failed endometrial ablation. Postoperatively patient oxygen was running low. I was called for a stat consult given that patient's not making any urine. Patient's creatinine preoperatively was 0.6 now 1.88. Patient also requiring a nonrebreather. No prior history of DVTs or PEs. Patient is morbidly obese. With a BMI of 32.3. Patient denies any pulmonary history. No fever no chills. No cough. Portable chest x-ray, ABG, CBC ordered. Review of systems: GEN.: Tired EYES: None HEENT: None NECK: None RESPIRATORY: No shortness of breath CARDIOVASCULAR: None GASTROINTESTINAL: None GENITOURINARY: None MUSCULOSKELETAL: None LYMPHATICS: None HEMATOLOGICAL: None PSYCHIATRY: None NEUROLOGICAL: None Social history: Does not smoke or drink alcohol. 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 . Past medical history to include: GERD, hypertension, depression, ADHD, obstructive sleep apnea uses CPAP for last 5 years. Dysfunctional uterine bleeding Physical examination: VITAL SIGNS: [Afebrile, 86, 22, 95 x 69, 97% on nonrebreather 15 L GENERAL: BMI 52.3, laying in bed short of breath. EYES: Pupils equal. Conjunctiva mark l. HEENT: External appearance of nose and ears normal, oral cavity grossly normal. NECK: JVD not raised; masses not palpable. HEART: First and second heart sounds are normal; no edema. LUNGS: Respiratory rate increased, fair entry. ABDOMEN: Soft, nontender, liver spleen not palpable, no masses palpable. Vides catheter PSYCH: Tired but able to answer questions l. MUSCULOSKELETAL:No Clubbing/cyanosis;muscles-grossly intact NEUROLOGICAL: Cranial nerves grossly intact; no facial asymmetry, power and sensation grossly intact. LYMPHATICS: No lymph nodes palpable in the axilla and neck INVESTIGATIONS, reviewed in the clinical context: Sodium 137 potassium 5.3 BUN 21 creatinine 1.88 ABG: pH 7.42 pCO2 39 pO2 225 oxygen saturation 99.9 FiO2 15 L Chest x-ray film personally reviewed by me: Elevated right diaphragm Assessment plan: -Acute kidney injury. Likely obstructive postoperative. Anuric. Preoperative creatinine was 0.6. Postoperative 1.88. No urine output. Spoke to Dr. Ernandez. She to contact on-call urologist. Patient may need to be taken back to the OR. Strict I's and O's. -Possible acute on chronic shortness of breath. Patient has underlying obstructive sleep apnea. Element of obstructive sleep apnea. Pulmonary embolism in the differential. Given the fact patient may have to go back to the OR we will hold off any anticoagulation. Pulmonary Dr. PANDA has been consulted. Doppler ultrasounds of both lower extremity. Given the abnormal creatinine CT angiogram cannot be done. -Essential hypertension Hold off lisinopril given increased creatinine. Blood pressure on the softer side currently. IV fluids. -Obstructive sleep apnea Patient does use CPAP -Abnormal chest x-ray right diaphragm elevation Dr. Panda from pulmonary consulted -GERD -Depression Lexapro 20 mg a day -ADHD Vyvanase -Relative hypotension IV fluids Care was discussed with the patient at the bedside. Consultation to urology and pulmonary. IV fluids. Strict I's and O's. I did speak to Dr. Ernandez Thank you Past Medical History Past Medical History: GERD/Reflux, Hypertension, Sleep Apnea/CPAP/BIPAP, Thyroid Disorder Additional Past Medical History / Comment(s): VARICOSE VEINS, uses CPAP, past hx thyroid nodules. season allergies History of Any Multi-Drug Resistant Organisms: None Reported Past Surgical History: Back Surgery, Bariatric Surgery, Section, Cholecystectomy, Orthopedic Surgery, Tubal Ligation Additional Past Surgical History / Comment(s): C SECT X 2,LT FOOT SURG,WISDOM TEETH, gastric sleeve, PARTIAL THYROIDECTOMY Past Anesthesia/Blood Transfusion Reactions: Family History of Problems w/ Anesthesia, Motion Sickness, Postoperative Nausea & Vomiting (PONV) Additional Past Anesthesia/Blood Transfusion Reaction / Comm: "DAD HAS PROBLEMS WITH ANESTHESIA STATES DOES NOT REMEMBER WHAT BUT REMEMBERS THERE WAS A COMPLI CATION.", Pt has very difficult time coming out of anesthesia & severe PONV Past Psychological History: Anxiety, Depression Smoking Status: Never smoker Past Alcohol Use History: Rare Past Drug Use History: None Reported - Past Family History Father Family Medical History: Coronary Artery Disease (CAD), Diabetes Mellitus Additional Family Medical History / Comment(s): CABG Mother Family Medical History: Deep Vein Thrombosis (DVT), Pulmonary Embolus Medications and Allergies Home Medications Medication Instructions Recorded Confirmed Type Famotidine [Pepcid] 20 mg PO DAILY 03/04/24 03/09/24 History Fexofenadine HCl [Yu Allergy] 180 mg PO DAILY PRN 03/04/24 03/09/24 History Lisdexamfetamine Dimesylate 70 mg PO QAM 03/04/24 03/09/24 History [Vyvanse] Unk Multi Vitamin 1 tab PO DAILY 03/04/24 03/04/24 History Unk Tylenol 1 tab PO DIRECTED PRN 03/04/24 03/09/24 History lisinopriL [Zestril] 40 mg PO DAILY 03/04/24 03/09/24 History Escitalopram [Lexapro] 20 mg PO DAILY 03/09/24 03/09/24 History Allergies Allergy/AdvReac Type Severity Reaction Status Date / Time No Known Allergies Allergy Verified 03/09/24 06:14 Physical Exam Vitals: Vital Signs Temp Pulse Resp BP Pulse Ox 03/09/24 18:00 10 L 97 03/09/24 17:00 86 12 95/69 97 03/09/24 16:00 82 12 107/69 97 03/09/24 14:30 86 10 L 94 L 03/09/24 14:09 102 H 12 94 L 03/09/24 14:00 10 L 5 L 03/09/24 13:39 102 H 12 86/55 94 L 03/09/24 13:15 93 10 L 92/63 93 L 03/09/24 12:54 83 16 97/62 95 03/09/24 12:39 86 18 97/62 98 03/09/24 12:24 99 F 89 20 91/57 96 03/09/24 12:00 91 12 105/68 93 L 03/09/24 11:45 92 12 121/75 93 L 03/09/24 11:30 94 12 91/59 94 L 03/09/24 11:15 98 16 85/63 93 L 03/09/24 11:00 91 16 103/67 93 L 03/09/24 10:45 96 16 103/74 93 L 03/09/24 10:30 95 16 135/69 95 03/09/24 10:15 105 H 16 160/83 99 03/09/24 10:10 97.7 F 117 H 14 147/81 95 03/09/24 07:17 80 16 101/58 98 03/09/24 06:30 97.3 F L 73 16 119/74 97 Intake and Output 03/09/24 03/09/24 03/09/24 06:59 14:59 22:59 Intake Total 300 1800 Output Total 850 Balance 300 950 Intake: IV 300 1800 Output: Urine 700 Estimated Blood Loss 150 Other: Weight 155.9 kg 155.9 kg Results CBC & Chem 7: 03/09/24 21:10 Labs: Abnormal Lab Results - Last 24 Hours (Table) 03/09/24 03/09/24 Range/Units 21:10 22:09 ABG pO2 225 H (83-108) mmHg ABG Total CO2 27 H (19-24) mmol/L ABG O2 Saturation 99.9 H (94-97) % Potassium 5.3 H (3.5-5.1) mmol/L BUN 21 H (7-17) mg/dL Creatinine 1.88 H (0.52-1.04) mg/dL Glucose 116 H (74-99) mg/dL Calcium 8.2 L (8.4-10.2) mg/dL
--- NOTE | 2024-03-09 23:01 | XR ---
EXAM: XR Chest, 1 View CLINICAL HISTORY: ITS.REASON XR Reason: desatting post-op, on o2 TECHNIQUE: Frontal view of the chest. COMPARISON: 09/13/22 FINDINGS: Lungs: Linear bands of atelectasis at both lung bases. No consolidation. Pleural space: Unremarkable. No pleural effusion or pneumothorax. Heart: Unremarkable. No cardiomegaly or pulmonary vascular congestion. Bones/joints: No acute fracture. No dislocation. Upper abdomen: Right hemidiaphragm elevation. IMPRESSION: Linear bands of atelectasis at both lung bases. No consolidation.
[2024-03-09 23:04] LABS: Basophils % (A) 0 %; Eosinophils % (A) 0 %; HCT 36.1 % (34.0-46.0); HGB 11.3 gm/dL (11.4-16.0); Lymphocytes % (A) 7 %; MCH 28.9 pg (25.0-35.0); MCHC 31.4 g/dL (31.0-37.0); MCV 92.1 fL (80.0-100.0); Mean Platelet Volume 8.1; Monocytes # (A) 0.8 k/uL (0-1.0); Monocytes % (A) 6 %; Neutrophils # (A) 11.2 k/uL (1.3-7.7); Neutrophils % (A) 86 %; Platelet Count 283 k/uL (150-450); RBC 3.92 m/uL (3.80-5.40); RDW 13.2 % (11.5-15.5); WBC 13.1 k/uL (3.8-10.6)
[2024-03-09] MEDS: SODIUM CHLORIDE 0.9% 1,000 ML IV SCH (23:55)
--- NOTE | 2024-03-10 00:25 | US ---
EXAM: US Duplex Bilateral Lower Extremities Veins CLINICAL HISTORY: ITS.REASON US Reason: Rule out DVT TECHNIQUE: Real-time duplex ultrasound scan of the bilateral lower extremity veins integrating B-mode two-dimensional vascular structure, Doppler spectral analysis, color flow Doppler imaging and compression. COMPARISON: No relevant prior studies available. FINDINGS: Right deep veins: Unremarkable. No DVT in the right common femoral, femoral, proximal deep femoral or popliteal veins. The veins demonstrate normal color flow, are normally compressible, with normal phasic flow and/or augmentation response. Right superficial veins: Unremarkable. No thrombus in the visualized right great saphenous vein. Left deep veins: Unremarkable. No DVT in the left common femoral, femoral, proximal deep femoral or popliteal veins. The veins demonstrate normal color flow, are normally compressible, with normal phasic flow and/or augmentation response. Left superficial veins: Unremarkable. No thrombus in the visualized left great saphenous vein. Soft tissues: No acute findings. No popliteal cyst. IMPRESSION: Normal bilateral lower extremity duplex venous ultrasound.
--- NOTE | 2024-03-10 00:27 | US ---
EXAM: US Retroperitoneal Limited, Renal CLINICAL HISTORY: ITS.REASON US Reason: decreased output postop TECHNIQUE: Real-time limited ultrasound of the retroperitoneum with image documentation. COMPARISON: No relevant prior studies available. FINDINGS: Right kidney: Right kidney measures 11.7 cm. Echogenic 11 mm region in the inferior pole could represent a nonshadowing stone or a small benign angiomyolipoma. No hydronephrosis or cyst. Left kidney: Left kidney measures 11.2 cm. No hydronephrosis, mass, cyst, or stone. Bladder: Urinary bladder decompressed around a Vides catheter. IMPRESSION: 1. No hydronephrosis. 2. Echogenic 11 mm region right kidney lower pole could represent a nonshadowing stone or a small benign angiomyolipoma.
--- NOTE | 2024-03-10 02:47 | P.CNPUL ---
History of Present Illness Consult date: 03/10/24 Requesting physician: Ge Silva Reason for consult: other (Postoperative hypoxia) Chief complaint: Increased oxygen demand History of present illness: Patient is a 43-year-old white female with past medical history significant for uterine fibroids, dysmenorrhea, and previous endometrial ablation. Other past medical history includes obstructive sleep apnea with CPAP machine, morbid obesity, hypertension, GERD. She also has history of issues with general anesthesia, with prolonged postoperative sedation and shaking. She presented yesterday for an elective robotic assisted total laparoscopic hysterectomy. Postoperatively, the patient was admitted to [facility]. We were cons ulted as the patient had increased oxygen demand postoperatively. She was reportedly drowsy for prolonged period of time postoperatively. is at bedside, and states this is the most awake she has been since surgery. On my evaluation, she is lying in bed, she is alert and not in any respiratory distress. She is on a 15 L nonrebreather. An ABG was done which showed a PaO2 of 225, pCO2 of 39, pH of 7.42. Chest x-ray shows right elevated hemidiaphragm with linear bands of atelectasis at the lung bases. No consolidation. She did have some nausea and isolated episode of emesis postoperatively. No reported aspiration events. Current vital signs include a blood pressure of 96/64, heart rate of 82 bpm, SpO2 99% on the 15 L on nonrebreather, respirations between 15 and 20 breaths/min. Denies any chest pain. Denies any personal history of blood clots. Her mother did have a pulmonary embolism. D-dimer was elevated, but likely related to recent surgery. My suspicion for pulmonary embolism is low. No unilateral leg swelling. Venous Doppler of the bilateral lower extremity did not identify any deep venous thrombosis. Postoperative CBC: WBC count of 13.1, hemoglobin 11.3, hematocrit 36.1, platelets 283. Postoperative BMP: Sodium 137, potassium 5.3, chloride 105, serum bicarb 28, BUN 21, creatinine 1.88, glucose 116. There is a component of acute kidney injury. Urine output is low, around 20 to 30 mL/h. She has received 2 L crystalloid bolus since surgery. She is also has lactated Ringer's infusing at 100 MLS per hour. Since my evaluation, we have easily been able to wean the patient down to 4 L nasal cannula. I was initially going to leave the patient on [facility], however, her blood pressure did become hypotensive. She was given an additional liter of normal saline bolus. Blood pressure has responded nicely. No acute blood loss noted. Only mild abdominal tenderness with palpation. We transferred the patient General medical floor. Review of Systems REVIEW OF SYSTEMS: CONSTITUTIONAL: Denies any recent significant weight loss or weight gain. EYES: Denies change in vision. EARS, NOSE, MOUTH, THROAT: Denies headaches, denies sore throat. CARDIOVASCULAR: Denies chest pain, palpitations or syncopal episodes. RESPIRATORY: Denies shortness of breath, cough, congestion or hemoptysis. GASTROINTESTINAL: Denies change in appetite, nausea and vomiting, or diarrhea. Admits some mild abdominal tenderness with palpation. GENITOURINARY: Denies hematuria, denies infections. MUSKULOSKELETAL: Denies pain, denies swelling. INTEGUMENTARY: Denies rash, denies eczema. NEUROLOGICAL: Denies recent memory loss, no recent seizure activity. PSYCHIATRIC: Denies anxiety, denies depression. HEMATOLOGIC/LYMPHATIC: Denies anemia, denies enlarged lymph node Past Medical History Past Medical History: GERD/Reflux, Hypertension, Sleep Apnea/CPAP/BIPAP, Thyroid Disorder Additional Past Medical History / Comment(s): VARICOSE VEINS, uses CPAP, past hx thyroid nodules. season allergies History of Any Multi-Drug Resistant Organisms: None Reported Past Surgical History: Back Surgery, Bariatric Surgery, Section, Cholecystectomy, Orthopedic Surgery, Tubal Ligation Additional Past Surgical History / Comment(s): C SECT X 2,LT FOOT SURG,WISDOM TEETH, gastric sleeve, PARTIAL THYROIDECTOMY Past Anesthesia/Blood Transfusion Reactions: Family History of Problems w/ Anesthesia, Motion Sickness, Postoperative Nausea & Vomiting (PONV) Additional Past Anesthesia/Blood Transfusion Reaction / Comment(s): "DAD HAS PROBLEMS WITH ANESTHESIA STATES DOES NOT REMEMBER WHAT BUT REMEMBERS THERE WAS A COMPLICATION.", Pt has very difficult time coming out of anesthesia & severe PONV Past Psychological History: Anxiety, Depression Smoking Status: Never smoker Past Alcohol Use History: Rare Past Drug Use History: None Reported - Past Family History Father Family Medical History: Coronary Artery Disease (CAD), Diabetes Mellitus Additional Family Medical History / Comment(s): CABG Mother Family Medical History: Deep Vein Thrombosis (DVT), Pulmonary Embolus Medications and Allergies Home Medications Medication Instructions Recorded Confirmed Type Famotidine [Pepcid] 20 mg PO DAILY 03/04/24 03/09/24 History Fexofenadine HCl [Yu Allergy] 180 mg PO DAILY PRN 03/04/24 03/09/24 History Lisdexamfetamine Dimesylate 70 mg PO QAM 03/04/24 03/09/24 History [Vyvanse] Unk Multi Vitamin 1 tab PO DAILY 03/04/24 03/04/24 History Unk Tylenol 1 tab PO DIRECTED PRN 03/04/24 03/09/24 History lisinopriL [Zestril] 40 mg PO DAILY 03/04/24 03/09/24 History Escitalopram [Lexapro] 20 mg PO DAILY 03/09/24 03/09/24 History Allergies Allergy/AdvReac Type Severity Reaction Status Date / Time No Known Allergies Allergy Verified 03/09/24 06:14 Physical Exam Vitals: Vital Signs Temp Pulse Resp BP Pulse Ox 03/10/24 01:45 18 03/10/24 01:22 79 18 95/62 95 03/10/24 00:50 90/58 03/10/24 00:47 85 13 77/51 96 03/10/24 00:45 77/51 03/10/24 00:32 79 11 L 110/62 96 03/10/24 00:25 86 11 L 94/61 96 03/10/24 00:21 92 12 95/61 96 03/10/24 00:15 93 11 L 83/53 97 03/10/24 00:01 81 10 L 69/38 95 03/09/24 23:59 98.8 F 83 10 L 69/42 94 L 03/09/24 23:58 60/39 03/09/24 23:20 96 03/09/24 23:11 97 03/09/24 23:03 87 13 96/41 99 03/09/24 22:40 99.2 F 86 13 87/49 99 03/09/24 19:55 98.8 F 86 12 103/70 97 03/09/24 18:00 10 L 97 03/09/24 17:00 86 12 95/69 97 03/09/24 16:00 82 12 107/69 97 03/09/24 14:30 86 10 L 94 L 03/09/24 14:09 102 H 12 94 L 03/09/24 14:00 10 L 5 L 03/09/24 13:39 102 H 12 86/55 94 L 03/09/24 13:15 93 10 L 92/63 93 L 03/09/24 12:54 83 16 97/62 95 03/09/24 12:39 86 18 97/62 98 03/09/24 12:24 99 F 89 20 91/57 96 03/09/24 12:00 91 12 105/68 93 L 03/09/24 11:45 92 12 121/75 93 L 03/09/24 11:30 94 12 91/59 94 L 03/09/24 11:15 98 16 85/63 93 L 03/09/24 11:00 91 16 103/67 93 L 03/09/24 10:45 96 16 103/74 93 L 03/09/24 10:30 95 16 135/69 95 03/09/24 10:15 105 H 16 160/83 99 03/09/24 10:10 97.7 F 117 H 14 147/81 95 03/09/24 07:17 80 16 101/58 98 03/09/24 06:30 97.3 F L 73 16 119/74 97 Intake and Output 03/09/24 03/09/24 03/10/24 14:59 22:59 06:59 Intake Total 1800 Output Total 850 0 Balance 950 0 Intake: IV 1800 Output: Urine 700 0 Uretheral (Vides) 0 Estimated Blood Loss 150 Other: Weight 155.9 kg GENERAL EXAM: Alert, 43-year-old white female, comfortable in no apparent distress. HEAD: Normocephalic and atraumatic EYES: Normal reaction of pupils, equal size. NOSE: Clear with pink turbinates. THROAT: No erythema or exudates. NECK: No masses, no JVD. CHEST: No chest wall deformity. LUNGS: Equal air entry with right basilar inspiratory crackles. On a 4 L/min nasal cannula. SpO2 95%. No conversational dyspnea or accessory muscle use while at rest CVS: S1 and S2 normal with no audible murmur, regular rhythm. No extra heart sounds ABDOMEN: No hepatosplenomegaly, active bowel sounds, no guarding or rigidity. Multiple laparoscopic incision sites, approximated, clean and dry. SPINE: No scoliosis or deformity SKIN: No rashes CENTRAL NERVOUS SYSTEM: No focal deficits, tone is normal in all 4 extremities. EXTREMITIES: There is no peripheral edema, clubbing, or cyanosis. Peripheral pulses are intact. Results - Laboratory Findings CBC and BMP: 03/09/24 22:26 03/09/24 21:10 ABG ABG pH 7.42 (7.35-7.45) 03/09/24 22:09 ABG pCO2 39 mmHg (35-45) 03/09/24 22:09 ABG pO2 225 mmHg (83-108) H 03/09/24 22:09 ABG O2 Saturation 99.9 % (94-97) H 03/09/24 22:09 PT/INR, D-dimer D-Dimer 2.50 mg/L FEU (<0.60) H 03/10/24 00:33 Abnormal lab findings: Abnormal Labs 03/09/24 03/09/24 03/09/24 21:10 22:09 22:26 WBC 13.1 H Hgb 11.3 L Neutrophils # 11.2 H D-Dimer ABG pO2 225 H ABG Total CO2 27 H ABG O2 Saturation 99.9 H Potassium 5.3 H BUN 21 H Creatinine 1.88 H Glucose 116 H Calcium 8.2 L 03/10/24 00:33 WBC Hgb Neutrophils # D-Dimer 2.50 H ABG pO2 ABG Total CO2 ABG O2 Saturation Potassium BUN Creatinine Glucose Calcium - Diagnostic Findings Chest x-ray: image reviewed Assessment and Plan Assessment: Uterine fibroids, dysmenorrhea, and abnormal uterine bleeding status postoperative day #1 following an elective robotic assisted total laparoscopic hysterectomy with cystoscopy Postoperative atelectasis and chronic elevated right hemidiaphragm, possible diaphragmatic paralysis Acute hypoxemic respiratory failure, likely secondary to above, patient does also have a history of prolonged sedation after being under general anesthesia. Obstructive sleep apnea, maintained on CPAP at home Morbid obesity, with a BMI of 52.3 kg/m History of prior endometrial ablation Postoperative hypotension, responding to fluid resuscitation Leukocytosis, likely reactive to surgery Elevated D-dimer, nonspecific after recent surgery, clinical suspicion for pul monary embolism is low. Acute kidney injury, possibly secondary to hypotension and ATN Hyperkalemia History of hypertension History of GERD without esophagitis History of ADHD Plan: Patient's medications, labs, chest x-ray reviewed Continue supplemental oxygen, to maintain oxygen saturation of 92% or greater. Patient has already been weaned down to 4 L/min nasal cannula. Continue encou rage aggressive pulmonary toileting and incentive spirometer while awake. Clinically, suspicion for pulmonary embolism is low. Venous Doppler negative. May follow-up with VQ scan to rule out pulmonary embolism. Patient's hypotension has responded nicely to fluid resuscitation. Patient does have an acute kidney injury. Hold nephrotoxic agents and FABIAN inhibitor. Denies any urinary complaints. Urine output is oliguric. It appears the patient did have a follow-up renal bladder ultrasound which showed a 11 mm echogenic region of the right kidney lower pole which could represent a nonshadowing stone or small benign angiomyolipoma. Urology was added to the case. Patient was transferred to the general medical floor. We will continue to follow. Patient Sudheer have personally seen and examined the patient, performed the documentation and the assessment and plan as written. Number of minutes spent on the visit:20 Time with Patient: Greater than 30
[2024-03-10 05:35] LABS: Basophils % (A) 0 %; Eosinophils % (A) 0 %; HCT 32.4 % (34.0-46.0); HGB 10.3 gm/dL (11.4-16.0); Hypochromasia Slight; Lymphocytes # (A) 1.5 k/uL (1.0-4.8); Lymphocytes % (A) 16 %; MCH 29.3 pg (25.0-35.0); MCHC 31.8 g/dL (31.0-37.0); MCV 92.1 fL (80.0-100.0); Mean Platelet Volume 8.5; Monocytes # (A) 0.7 k/uL (0-1.0); Monocytes % (A) 7 %; Neutrophils % (A) 75 %; Platelet Count 199 k/uL (150-450); RBC 3.52 m/uL (3.80-5.40); RDW 13.2 % (11.5-15.5); WBC 9.4 k/uL (3.8-10.6)
[2024-03-10 06:00] LABS: African American GFR (CKD) 35 (>60 ml/min/1.73 sqM); Anion Gap 8 mmol/L; Blood Urea Nitrogen 25 mg/dL (7-17); Calcium 7.8 mg/dL (8.4-10.2); Carbon Dioxide 24 mmol/L (22-30); Chloride 107 mmol/L (98-107); Glucose 94 mg/dL (74-99); Non-African American GFR(CKD) 30 (>60 ml/min/1.73 sqM); Potassium 4.5 mmol/L (3.5-5.1); Sodium 139 mmol/L (137-145)
--- NOTE | 2024-03-10 06:20 | P.PN ---
Progress Note - Text Progress Note Date: 03/10/24 POD spinal duramorph doing well this morning, pain still uncontrolled. requiring pain medications. Has JOHN and is morbidly obese. Requiring o2 last yesterday but maintaining her resp rate. When called yesterday, i advised to place CPAP on to avoid hypercarbia. Patient was see by medicine as well, recommended continued monitoring and low suspicion for PE. Pain meds as tolerated today, try to avoid narcotics and utilize NSAIDS, Tylenol. Contact anesthesia with questions.
[2024-03-10 07:52] LABS: Amorphous Sediment,Urine Moderate /hpf; Appearance,Urine Cloudy (Clear); Bacteria,Urine Rare /hpf; Bilirubin,Urine Negative (Negative); Blood,Urine Large (Negative); Color,Urine Yellow; Glucose,Urine (UA) Trace (Negative); Granular Casts,Urine 6 /lpf (0); Hyaline Casts,Urine 2 /lpf (0-2); Ketones,Urine Negative (Negative); Leukocyte Esterase,Urine Moderate (Negative); Mucus,Urine Rare /hpf; Nitrite,Urine Negative (Negative); PH, Urine 5.5 (5.0-8.0); Protein,Urine 2+ (Negative); RBC,Urine 111 /hpf (0-5); Specific Gravity,Urine 1.021 (1.001-1.035); Squamous Epithelial Cell,Urine <1 /hpf (0-4); Urobilinogen,Urine <2.0 mg/dL (<2.0); WBC,Urine 27 /hpf (0-5)
--- NOTE | 2024-03-10 07:55 | P.GSCN ---
History of Present Illness Consult date: 03/10/24 History of present illness: 43 yo female who underwent a robotic assisted hysterectomy yesterday. We have been asked to see for low urine output post op. the iv has been running at 130/hr, The urine output in the last shift is 100 ml. SHe had a post op us that didnt show any hydronephrosis.Her creatinine is 1.88, repeat at 1.96. Her blood pressure has been lo throught the night. SHe has received alot of fluid over night. There is no history of urinary tract problems. Dr Ernandez did post op cystoscopy and didnt identofy and bladder injury and saw efflux of urine from both ureters. Review of Systems All systems: negative - Constitutional Denies fever, Denies weight loss - EENT Eyes: denies blurred vision Ears, nose, mouth and throat: Denies dysphagia - Cardiovascular Denies chest pain, Denies shortness of breath - Respiratory Denies cough, Denies 7 - Gastrointestinal Reports as per HPI - Genitourinary Genitourinary: Denies dysuria, Denies hematuria - Integumentary Denies rash, Denies unusual bruising - Neurological Denies headaches, Denies syncope - Hematologic/Lymphatic Denies easy bleeding, Denies easy bruising Past Medical History Past Medical History: GERD/Reflux, Hypertension, Sleep Apnea/CPAP/BIPAP, Thyroid Disorder Additional Past Medical History / Comment(s): VARICOSE VEINS, uses CPAP, past hx thyroid nodules. season allergies History of Any Multi-Drug Resistant Organisms: None Reported Past Surgical History: Back Surgery, Bariatric Surgery, Section, Cholecystectomy, Orthopedic Surgery, Tubal Ligation Additional Past Surgical History / Comment(s): C SECT X 2,LT FOOT SURG,WISDOM TEETH, gastric sleeve, PARTIAL THYROIDECTOMY Past Anesthesia/Blood Transfusion Reactions: Family History of Problems w/ Anesthesia, Motion Sickness, Postoperative Nausea & Vomiting (PONV) Additional Past Anesthesia/Blood Transfusion Reaction / Comm: "DAD HAS PROBLEMS WITH ANESTHESIA STATES DOES NOT REMEMBER WHAT BUT REMEMBERS THERE WAS A COMPLICATION.", Pt has very difficult time coming out of anesthesia & severe PONV Past Psychological History: Anxiety, Depression Smoking Status: Never smoker Past Alcohol Use History: Rare Past Drug Use History: None Reported - Past Family History Father Family Medical History: Coronary Artery Disease (CAD), Diabetes Mellitus Additional Family Medical History / Comment(s): CABG Mother Family Medical History: Deep Vein Thrombosis (DVT), Pulmonary Embolus Medications and Allergies Home Medications Medication Instructions Recorded Confirmed Type Famotidine [Pepcid] 20 mg PO DAILY 03/04/24 03/09/24 History Fexofenadine HCl [Yu Allergy] 180 mg PO DAILY PRN 03/04/24 03/09/24 History Lisdexamfetamine Dimesylate 70 mg PO QAM 03/04/24 03/09/24 History [Vyvanse] Unk Multi Vitamin 1 tab PO DAILY 03/04/24 03/04/24 History Unk Tylenol 1 tab PO DIRECTED PRN 03/04/24 03/09/24 History lisinopriL [Zestril] 40 mg PO DAILY 03/04/24 03/09/24 History Escitalopram [Lexapro] 20 mg PO DAILY 03/09/24 03/09/24 History Allergies Allergy/AdvReac Type Severity Reaction Status Date / Time No Known Allergies Allergy Verified 03/09/24 06:14 Surgical - Exam Vital Signs Temp Pulse Resp BP Pulse Ox 97.3 F L 73 16 119/74 97 03/09/24 06:30 03/09/24 06:30 03/09/24 06:30 03/09/24 06:30 03/09/24 06:30 - General well developed, well nourished, no distress - Eyes normal ocular movement, no icteric - ENT no hearing loss, no congestion - Neck no masses, trachea midline - Respiratory normal respiratory effort, clear to auscultation - Abdomen Abdomen: soft, non tender, no guarding, no rigid, no rebound - Genitourinary soft non tender, obese. - Integumentary no rash, no abnormal pigmentation - Neurologic no disoriented, no combative - Psychiatric oriented to time, oriented to person, oriented to place, speech is normal, memory intact Results - Labs 03/10/24 04:10 03/10/24 04:10 Abnormal Lab Results - Last 24 Hours (Table) 03/09/24 03/09/24 03/09/24 Range/Units 21:10 22:09 22:26 WBC 13.1 H (3.8-10.6) k/uL RBC (3.80-5.40) m/uL Hgb 11.3 L (11.4-16.0) gm/dL Hct (34.0-46.0) % Neutrophils # 11.2 H (1.3-7.7) k/uL D-Dimer (<0.60) mg/L FEU ABG pO2 225 H (83-108) mmHg ABG Total CO2 27 H (19-24) mmol/L ABG O2 Saturation 99.9 H (94-97) % Potassium 5.3 H (3.5-5.1) mmol/L BUN 21 H (7-17) mg/dL Creatinine 1.88 H (0.52-1.04) mg/dL Glucose 116 H (74-99) mg/dL Calcium 8.2 L (8.4-10.2) mg/dL 03/10/24 03/10/24 03/10/24 Range/Units 00:33 04:10 04:10 WBC (3.8-10.6) k/uL RBC 3.52 L (3.80-5.40) m/uL Hgb 10.3 L (11.4-16.0) gm/dL Hct 32.4 L (34.0-46.0) % Neutrophils # (1.3-7.7) k/uL D-Dimer 2.50 H (<0.60) mg/L FEU ABG pO2 (83-108) mmHg ABG Total CO2 (19-24) mmol/L ABG O2 Saturation (94-97) % Potassium (3.5-5.1) mmol/L BUN 25 H (7-17) mg/dL Creatinine 1.96 H (0.52-1.04) mg/dL Glucose (74-99) mg/dL Calcium 7.8 L (8.4-10.2) mg/dL Diabetes panel 03/09/24 03/10/24 Range/Units 21:10 04:10 Sodium 137 139 (137-145) mmol/L Potassium 5.3 H 4.5 (3.5-5.1) mmol/L Chloride 105 107 (98-107) mmol/L Carbon Dioxide 28 24 (22-30) mmol/L BUN 21 H 25 H (7-17) mg/dL Creatinine 1.88 H 1.96 H (0.52-1.04) mg/dL Glucose 116 H 94 (74-99) mg/dL Calcium 8.2 L 7.8 L (8.4-10.2) mg/dL AST 29 (14-36) U/L ALT 27 (4-34) U/L Alkaline Phosphatase 70 (38-126) U/L Total Protein 6.3 (6.3-8.2) g/dL Albumin 3.5 (3.5-5.0) g/dL Calcium panel 03/09/24 03/10/24 Range/Units 21:10 04:10 Calcium 8.2 L 7.8 L (8.4-10.2) mg/dL Albumin 3.5 (3.5-5.0) g/dL Pituitary panel 03/09/24 03/10/24 Range/Units 21:10 04:10 Sodium 137 139 (137-145) mmol/L Potassium 5.3 H 4.5 (3.5-5.1) mmol/L Chloride 105 107 (98-107) mmol/L Carbon Dioxide 28 24 (22-30) mmol/L BUN 21 H 25 H (7-17) mg/dL Creatinine 1.88 H 1.96 H (0.52-1.04) mg/dL Glucose 116 H 94 (74-99) mg/dL Calcium 8.2 L 7.8 L (8.4-10.2) mg/dL Adrenal panel 03/09/24 03/10/24 Range/Units 21:10 04:10 Sodium 137 139 (137-145) mmol/L Potassium 5.3 H 4.5 (3.5-5.1) mmol/L Chloride 105 107 (98-107) mmol/L Carbon Dioxide 28 24 (22-30) mmol/L BUN 21 H 25 H (7-17) mg/dL Creatinine 1.88 H 1.96 H (0.52-1.04) mg/dL Glucose 116 H 94 (74-99) mg/dL Calcium 8.2 L 7.8 L (8.4-10.2) mg/dL Total Bilirubin 1.0 (0.2-1.3) mg/dL AST 29 (14-36) U/L ALT 27 (4-34) U/L Alkaline Phosphatase 70 (38-126) U/L Total Protein 6.3 (6.3-8.2) g/dL Albumin 3.5 (3.5-5.0) g/dL Assessment and Plan Assessment: Impression: Low urine out put post hysterectomy Plan: It is unlikely there is an injury to the urinary tract contributing to the low urine output. I suspect she is thrird spacing her fluid and that the urine output will pickler helper in the next 24 hours. I will however order a ct scan ithout contrast just to make sure that there is no large fluid collection. We will follow.
[2024-03-10] MEDS: NON FORMULARY DRUG (Lisdexamfetamine Dimesylate [Vyvanse] 70 MG Capsule) PO SCH (08:25)
--- NOTE | 2024-03-10 09:05 | P.PN ---
Subjective Progress Note Date: 03/10/24 Principal diagnosis: POD#1 s/p robotic hysterectomy, cystoscopy Overnight the patient experienced acute hypoxic respiratory failure and was transferred to the medical surgical floor. Pulmonary was consulted, the patient's primary care provider was consulted, and urology was also consulted for oliguria on postoperative day 0. The patient did make 100 cc of urine over overnight caregiver. The patient is not in the room this morning on rounds, but her nurse states that she is still saturating 98% on 4 L of oxygen. She has gone for CT of the abdomen to evaluate for free fluid in the abdomen. Urology has a low suspicion for ureteral injury. Ultrasound of the kidneys did not show any hydronephrosis. Likely the patient is hypovolemic which has resulted in an acute kidney injury. She has received many fluids overnight and is likely third spacing. Objective - Vital Signs Vital signs: Vital Signs Temp 97.8 F 03/10/24 07:31 Pulse 77 03/10/24 07:31 Resp 15 03/10/24 07:31 BP 109/67 03/10/24 07:31 Pulse Ox 98 03/10/24 07:31 FiO2 Intake & Output 03/09/24 03/10/24 03/10/24 18:59 06:59 18:59 Intake Total 1800 2000 Output Total 850 100 Balance 950 1900 Weight 155.9 kg Intake: IV 1800 2000 Lactated Ringers 1,000 ml 2000 @ 1000 mls/hr IV .Q1H [facility] Rx#:[id number] Output: Urine 700 100 Uretheral (Vides) 0 Estimated Blood Loss 150 - Exam Exam deferred as the patient is out of the room for a CT abdomen at this time - Labs CBC & Chem 7: 03/10/24 04:10 03/10/24 04:10 Labs: Abnormal Lab Results - Last 24 Hours (Table) 03/09/24 03/09/24 03/09/24 Range/Units 21:10 22:09 22:26 WBC 13.1 H (3.8-10.6) k/uL RBC (3.80-5.40) m/uL Hgb 11.3 L (11.4-16.0) gm/dL Hct (34.0-46.0) % Neutrophils # 11.2 H (1.3-7.7) k/uL D-Dimer (<0.60) mg/L FEU ABG pO2 225 H (83-108) mmHg ABG Total CO2 27 H (19-24) mmol/L ABG O2 Saturation 99.9 H (94-97) % Potassium 5.3 H (3.5-5.1) mmol/L BUN 21 H (7-17) mg/dL Creatinine 1.88 H (0.52-1.04) mg/dL Glucose 116 H (74-99) mg/dL Calcium 8.2 L (8.4-10.2) mg/dL Urine Appearance (Clear) Urine Protein (Negative) Urine Glucose (UA) (Negative) Urine Blood (Negative) Ur Leukocyte Esterase (Negative) Urine RBC (0-5) /hpf Urine WBC (0-5) /hpf Amorphous Sediment (None) /hpf Urine Bacteria (None) /hpf Urine Mucus (None) /hpf 03/10/24 03/10/24 03/10/24 Range/Units 00:33 04:10 04:10 WBC (3.8-10.6) k/uL RBC 3.52 L (3.80-5.40) m/uL Hgb 10.3 L (11.4-16.0) gm/dL Hct 32.4 L (34.0-46.0) % Neutrophils # (1.3-7.7) k/uL D-Dimer 2.50 H (<0.60) mg/L FEU ABG pO2 (83-108) mmHg ABG Total CO2 (19-24) mmol/L ABG O2 Saturation (94-97) % Potassium (3.5-5.1) mmol/L BUN 25 H (7-17) mg/dL Creatinine 1.96 H (0.52-1.04) mg/dL Glucose (74-99) mg/dL Calcium 7.8 L (8.4-10.2) mg/dL Urine Appearance (Clear) Urine Protein (Negative) Urine Glucose (UA) (Negative) Urine Blood (Negative) Ur Leukocyte Esterase (Negative) Urine RBC (0-5) /hpf Urine WBC (0-5) /hpf Amorphous Sediment (None) /hpf Urine Bacteria (None) /hpf Urine Mucus (None) /hpf 03/10/24 Range/Units 06:05 WBC (3.8-10.6) k/uL RBC (3.80-5.40) m/uL Hgb (11.4-16.0) gm/dL Hct (34.0-46.0) % Neutrophils # (1.3-7.7) k/uL D-Dimer (<0.60) mg/L FEU ABG pO2 (83-108) mmHg ABG Total CO2 (19-24) mmol/L ABG O2 Saturation (94-97) % Potassium (3.5-5.1) mmol/L BUN (7-17) mg/dL Creatinine (0.52-1.04) mg/dL Glucose (74-99) mg/dL Calcium (8.4-10.2) mg/dL Urine Appearance Cloudy H (Clear) Urine Protein 2+ H (Negative) Urine Glucose (UA) Trace H (Negative) Urine Blood Large H (Negative) Ur Leukocyte Esterase Moderate H (Negative) Urine RBC 111 H (0-5) /hpf Urine WBC 27 H (0-5) /hpf Amorphous Sediment Moderate H (None) /hpf Urine Bacteria Rare H (None) /hpf Urine Mucus Rare H (None) /hpf Assessment and Plan Assessment: 43 year old POD#1 Robotic Assisted Total Laparoscopic Hysterectomy, Bilateral Salpingectomy, and Cystocopy Plan: 1. Postoperative. Continue to monitor. 2. TANVRI. Likely 2/2 to postoperative hypovolemia. Maintenance IVF at 130cc/hour at this time. Repeat CMP tomorrow AM. 3. Acute hypoxic respiratory failure, c/Pulmonary. CXR shows atelectasis. 4. Postoperative oliguria. Likely 2/2 to postoperative hypovolemia, patient 3rd spacing IVF. Continue to monitor today. Renal US is negative for hydronephrosis. Pt now undergoing CT Abdomen w/o contrast to evaluate for free fluid in the abdomen. Postoperative cystoscopy showed bilateral jets from the ureters and no injury to the bladder wall. Dispo: Continue inpatient management at this time. Appreciate Pulmonary and Urology recommendations. Time with Patient: Less than 30
--- NOTE | 2024-03-10 09:32 | NM ---
EXAMINATION TYPE: NM pul vent and perfuse DATE OF EXAM: 03/10/2024 CLINICAL INDICATION: Female, 43 years old with history of rule out PE; COMPARISON: NONE TECHNIQUE: Utilizing inhalation of 68.8 mCi Tc 99m DTPA aerosol and intravenous injection of 5.2 mCi of Tc 99m MAA, ventilation and perfusion images are acquired post injection in multiple projections. FINDINGS: Normal radiotracer distribution is noted in the lungs. There is no evidence of mismatched defects. IMPRESSION: Low probability for pulmonary embolism.
[2024-03-10] MEDS: FAMOTIDINE 20 MG TAB PO SCH (10:00)
[2024-03-10] MEDS: ESCITALOPRAM 20 MG TAB PO SCH (10:02)
[2024-03-10] MEDS: ACETAMINOPHEN TAB 325 MG TAB PO PRN (10:06)
--- NOTE | 2024-03-10 10:22 | CT ---
EXAMINATION TYPE: CT abdomen pelvis wo con CT DLP: 1907.90 mGycm, Automated exposure control for dose reduction was used. DATE OF EXAM: 03/10/2024 10:07 AM COMPARISON: CT abdomen pelvis most recent from CLINICAL INDICATION:Female, 43 years old with history of ro urinary tract injury from hysterectomy; r /o urinary tract injury from hysterectomy TECHNIQUE: Axial CT abdomen pelvis wo con;Sagittal and coronal reformats were created on a separate workstation. Contrast used: mL of , (none if empty) Oral contrast used: without Oral Contrast (none if empty) FINDINGS: LOWER CHEST: Patchy airspace disease (Opacification) seen in the right upper lobe. The left lung base . ABDOMEN LIVER: Unremarkable GALLBLADDER AND BILE DUCTS: Surgical clips in the gallbladder fossa. PANCREAS: Unremarkable. SPLEEN: Unremarkable. ADRENAL GLANDS: Unremarkable. KIDNEYS AND URETERS: No evidence of hydronephrosis or renal calculus. The ureters are unremarkable. PELVIS BLADDER: Unremarkable REPRODUCTIVE: Unremarkable. ABDOMEN & PELVIS STOMACH AND BOWEL: Normal caliber and appearance. No evidence of bowel obstruction. PERITONEUM/RETROPERITONEUM: No evidence of pneumoperitoneum or free fluid. VASCULATURE: No evidence of aortic aneurysm. MUSCULOSKELETAL: No acute osseous abnormalities LYMPH NODES: No gross evidence for lymphadenopathy. SOFT TISSUE/ABDOMINAL WALL: Unremarkable IMPRESSION: 1. No CT evidence of acute process. 2. Status post cholecystectomy
--- NOTE | 2024-03-10 11:05 | P.PN ---
Progress Note - Text Progress Note Date: 03/10/[address] a ct scan ordered by me and it doesnt show any obvious injury of the urinary tract nor excessive free fluid. I suspect the decrease urine output is third spacing.
[2024-03-10] MEDS: ONDANSETRON 4 MG/2 ML VIAL IVP PRN (12:16)
[2024-03-10] MEDS: SODIUM FERRIC GLUCONAT-SUCROSE 125 MG in SODIUM CHLORIDE 0.9% 100 ML IVPB SCH (12:16)
--- NOTE | 2024-03-10 17:39 | P.PN ---
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 Martin. Chronic stable medical conditions include GERD, hypertension, depression, ADHD,. Has been diagnosed obstructive sleep apnea 5 years ago does use a CPAP machine. Patient for dysfunctional uterine bleeding has underwent robotic assisted total laparoscopic hysterectomy and cystoscopy. Patient also had uterine fibroids and failed endometrial ablation. Postoperatively patient oxygen was running low. I was called for a stat consult given that patient's not making any urine. Patient's creatinine preoperatively was 0.6 now 1.88. Patient also requiring a nonrebreather. No prior history of DVTs or PEs. Patient is morbidly obese. With a BMI of 32.3. Patient denies any pulmonary history. No fever no chills. No cough. Portable chest x-ray, ABG, CBC ordered. March 10: Overnight patient was moved to the medical floor. Because of low blood pressure. Blood pressure better this morning. Patient started making urine. Was seen by urology Dr. Dietrich. Is since patient had acute kidney injury likely from hypotension. Making urine this morning. Also hypoxia better. VQ scan low probability for PE. Doppler ultrasound also negative for DVT. CT scan abdomen unremarkable. Decreased appetite. at the bedside. Blood loss anemia. IV iron ordered. On 2 L nasal cannula this m orning. Active Medications Acetaminophen (Acetaminophen Tab 325 Mg Tab) 650 mg PO Q6HR PRN PRN Reason: Mild Pain or Fever > 100.5 Stop: 04/09/24 10:07 Last Admin: 03/10/24 10:06 Dose: 650 mg Escitalopram Oxalate (Escitalopram 20 Mg Tab) 20 mg PO DAILY [facility] Last Admin: 03/10/24 10:02 Dose: 20 mg Famotidine (Famotidine 20 Mg Tab) 20 mg PO DAILY [facility] Last Admin: 03/10/24 10:00 Dose: 20 mg Sodium Chloride (Saline 0.9%) 1,000 mls @ 130 mls/hr IV .[id number] [facility] Last Admin: 03/10/24 08:25 Dose: Not Given Ferric Sodium Gluconate 125 mg (/ Sodium Chloride) 110 mls @ 100 mls/hr IVPB DAILY [facility] Stop: 03/11/24 10:05 Last Admin: 03/10/24 12:16 Dose: 100 mls/hr Naloxone HCl (Naloxone 0.4 Mg/Ml 1 Ml Vial) 0.2 mg IV Q2M PRN PRN Reason: Opioid Reversal Stop: 04/08/24 08:49 Non-Formulary Medication (Lisdexamfetamine Dimesylate [Vyvanse]) 70 mg PO QAM [facility] Last Admin: 03/10/24 08:25 Dose: Not Given Ondansetron HCl (Ondansetron 4 Mg/2 Ml Vial) 4 mg IVP Q6HR PRN PRN Reason: Nausea And Vomiting Last Admin: 03/10/24 16:05 Dose: 4 mg Simethicone (Simethicone 80 Mg Chewable) 80 mg PO ACHS PRN PRN Reason: Bloating Stop: 04/08/24 10:05 Social history: Does not smoke or drink alcohol. 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 . Past medical history to include: GERD, hypertension, depression, ADHD, obstructive sleep apnea uses CPAP for last 5 years. Dysfunctional uterine bleeding Physical examination: VITAL SIGNS: [Recent 0.8, 77, 20, 143 x 75, 91% on 2 L GENERAL: BMI 52.3, lying in bed, breathing better EYES: Pupils equal. Conjunctiva mark l. HEENT: External appearance of nose and ears normal, oral cavity grossly normal. NECK: JVD not raised; masses not palpable. HEART: First and second heart sounds are normal; no edema. LUNGS: Respiratory rate increased, fair entry. ABDOMEN: Soft, nontender, liver spleen not palpable, no masses palpable. Vides catheter PSYCH: AOx3, mood and affect tired INVESTIGATIONS, reviewed in the clinical context: March 10: White count 9.4 hemoglobin 10.3 platelets 189 potassium 4.5 urine 25 creatinine 1.96 Sodium 137 potassium 5.3 BUN 21 creatinine 1.88 ABG: pH 7.42 pCO2 39 pO2 225 oxygen saturation 99.9 FiO2 15 L Chest x-ray film personally reviewed by me: Elevated right diaphragm Assessment plan: -Acute kidney injury. Likely TANVIR from hypotension. Initially anuric. Now making urine.. Preoperative creatinine was 0.6. Creatinine currently 1.96.-He started making urine today. Followed by urology. Strict I's and O's. -Possible acute on chronic shortness of breath. Patient has underlying obstructive sleep apnea. Element of obstructive sleep apnea. Pulmonary embolism ruled out. [VQ scan low probability. Dopplers are negative for DVT.] Pulmonary was consulted -Essential hypertension Hold off lisinopril given increased creatinine. -Obstructive sleep apnea Patient does use CPAP -Abnormal chest x-ray right diaphragm elevation Dr. Panda from pulmonary following -GERD -Depression Lexapro 20 mg a day -ADHD Vyvanase -Relative hypotension IV fluids, to continue. Hold lisinopril Discussed with patient at the bedside. Activity as tolerated. Subcu Lovenox. Thank you Past Medical History Past Medical History: GERD/Reflux, Hypertension, Sleep Apnea/CPAP/BIPAP, Thyroid Disorder Additional Past Medical History / Comment(s): VARICOSE VEINS, uses CPAP, past hx thyroid nodules. season allergies History of Any Multi-Drug Resistant Organisms: None Reported Past Surgical History: Back Surgery, Bariatric Surgery, Section, Cholecystectomy, Orthopedic Surgery, Tubal Ligation Additional Past Surgical History / Comment(s): C SECT X 2,LT FOOT SURG,WISDOM TEETH, gastric sleeve, PARTIAL THYROIDECTOMY Past Anesthesia/Blood Transfusion Reactions: Family History of Problems w/ Anesthesia, Motion Sickness, Postoperative Nausea & Vomiting (PONV) Additional Past Anesthesia/Blood Transfusion Reaction / Comm: "DAD HAS PROBLEMS WITH ANESTHESIA STATES DOES NOT REMEMBER WHAT BUT REMEMBERS THERE WAS A COMPLICATION.", Pt has very difficult time coming out of anesthesia & severe PONV Past Psychological History: Anxiety, Depression Smoking Status: Never smoker Past Alcohol Use History: Rare Past Drug Use History: None Reported
[2024-03-10] MEDS: ENOXAPARIN 40 MG/0.4 ML SYRINGE SQ SCH (17:54)
[2024-03-10] MEDS: FUROSEMIDE 10 MG/ML 2 ML VIAL IV ONE (17:54)
[2024-03-10] MEDS: HYDROcodone/APAP 5-325MG 1 EACH TAB PO PRN (20:02)
[2024-03-11 06:39] LABS: African American GFR (CKD) 76 (>60 ml/min/1.73 sqM); Anion Gap 4 mmol/L; Blood Urea Nitrogen 23 mg/dL (7-17); Calcium 8.2 mg/dL (8.4-10.2); Carbon Dioxide 27 mmol/L (22-30); Chloride 109 mmol/L (98-107); Glucose 85 mg/dL (74-99); Non-African American GFR(CKD) 66 (>60 ml/min/1.73 sqM); Potassium 4.2 mmol/L (3.5-5.1); Sodium 140 mmol/L (137-145)
--- NOTE | 2024-03-11 09:43 | P.PN ---
Subjective Progress Note Date: 03/11/24 Principal diagnosis: POD#2 s/p robotic hysterectomy, cystoscopy The patient is doing much better this morning. She has no complaints. Pain is well-controlled. She has had good urine output throughout the evening. Her catheter was removed and she has voided several times overnight. She is now on room air, saturating ~94%. She is ambulating without difficulty, tolerating PO. She denies fevers, chills, shortness of breath, chest pain, pain/swelling in the legs. Objective - Vital Signs Vital signs: Vital Signs Temp 98.1 F 03/11/24 07:21 Pulse 67 03/11/24 07:21 Resp 18 03/11/24 07:21 BP 188/97 03/11/24 07:21 Pulse Ox 94 L 03/11/24 07:21 FiO2 Intake & Output 03/10/24 03/11/24 03/11/24 18:59 06:59 18:59 Output Total 900 1000 Balance -900 -1000 Output: Urine 900 1000 Uretheral (Vides) 650 Other: Voiding Method Indwelling Catheter - Exam Focused physical exam performed. This is a pleasant female in no apparent distress. Breathing is non-labored, she is conversing normally on exam. Abdomen is soft, appropriately tender after abdominal surgery. Incisions are clean, dry, and intact. Extremities are non-tender and non-edematous. - Labs CBC & Chem 7: 03/10/24 04:10 03/11/24 04:10 Labs: Abnormal Lab Results - Last 24 Hours (Table) 03/11/24 Range/Units 04:10 Chloride 109 H (98-107) mmol/L BUN 23 H (7-17) mg/dL Calcium 8.2 L (8.4-10.2) mg/dL Assessment and Plan Assessment: 43 year old POD#2 Robotic Assisted Total Laparoscopic Hysterectomy, Bilateral Salpingectomy, and Cystocopy Plan: 1. Postoperative. Continue to monitor. 2. TANVIR - resolved, likely 2/2 postoperative hypovolemia. 3. Acute hypoxic respiratory failure, c/Pulmonary. CXR shows atelectasis. VQ scan negative for PE. Now saturating 94% on room air. 4. Postoperative oliguria. - resolved. Voiding normally, good urine output. Dispo: Patient is stable for discharge from OBGYN standpoint. Appreciate recommendations from Pulmonology and Medicine on timing for discharge. Time with Patient: Less than 30
[2024-03-11] MEDS: lisinopriL 20 MG TAB PO SCH (11:59)
--- NOTE | 2024-03-11 14:19 | P.PN ---
Subjective Progress Note Date: 03/11/24 Patient is a 43-year-old white female with past medical history significant for uterine fibroids, dysmenorrhea, and previous endometrial ablation. Other past medical history includes obstructive sleep apnea with CPAP machine, morbid obesity, hypertension, GERD. She also has history of issues with general anesthesia, with prolonged postoperative sedation and shaking. She presented yesterday for an elective robotic assisted total laparoscopic hysterectomy. Postoperatively, the patient was admitted to [facility]. We were consulted as the patient had increased oxygen demand postoperatively. She was reportedly drowsy for prolonged period of time postoperatively. is at bedside, and states this is the most awake she has been since surgery. On my evaluation, she is lying in bed, she is alert and not in any respiratory distress. She is on a 15 L nonrebreather. An ABG was done which showed a PaO2 of 225, pCO2 of 39, pH of 7.42. Chest x-ray shows right elevated hemidiaphragm with linear bands of atelectasis at the lung bases. No consolidation. She did have some nausea and isolated episode of emesis postoperatively. No reported aspiration events. Current vital signs include a blood pressure of 96/64, heart rate of 82 bpm, SpO2 99% on the 15 L on nonrebreather, respirations between 15 and 20 breaths/min. Denies any chest pain. Denies any personal history of blood clots. Her mother did have a pulmonary embolism. D-dimer was elevated, but likely related to recent surgery. My suspicion for pulmonary embolism is low. No unilateral leg swelling. Venous Doppler of the bilateral lower extremity did not identify any deep venous thrombosis. Postoperative CBC: WBC count of 13.1, hemoglobin 11.3, hematocrit 36.1, platelets 283. Postoperative BMP: Sodium 137, potassium 5.3, chloride 105, serum bicarb 28, BUN 21, creatinine 1.88, glucose 116. There is a component of acute kidney injury. Urine output is low, around 20 to 30 mL/h. She has received 2 L crystalloid bolus since surgery. She is also has lactated Ringer's infusing at 100 MLS per hour. Since my evaluation, we have easily been able to wean the patient down to 4 L nasal cannula. I was initially going to leave the patient on the [facility] unit, however, her blood pressure did become hypotensive. She was given an additional liter of normal saline bolus. Blood pressure has responded nicely. No acute blood loss noted. Only mild abdominal tenderness with palpation. We transferred the patient General medical floor. The patient is seen today March 11, 2024 and follow-up on the regular medical floor. She is currently sitting up in bed. Awake and alert in no acute distress. She is maintaining good O2 saturations in the 90s on room air. She denies any worsening shortness of breath, cough or congestion. Pulmonary perfusion test revealed low probability for pulmonary embolism. CT scan of the abdomen pelvis revealed no acute process. Sodium 140. Potassium 4.2. Bicarb 23. BUN 23. Creatinine 1.03. Urinalysis cloudy with large blood and high WBCs. She remains on Lovenox for DVT prophylaxis. Working well with the incentive spirometer. Objective - Vital Signs Vital signs: Vital Signs Temp 98.1 F 03/11/24 07:21 Pulse 67 03/11/24 08:00 Resp 17 03/11/24 10:00 BP 188/97 03/11/24 07:21 Pulse Ox 92 L 03/11/24 13:54 FiO2 Intake & Output 03/10/24 03/11/24 03/11/24 18:59 06:59 18:59 Output Total 900 1000 Balance -900 -1000 Output: Urine 900 1000 Uretheral (Vides) 650 Other: Voiding Method Indwelling Catheter Toilet - Exam GENERAL EXAM: Alert, 43-year-old obese female, seen in bed, on room air, comfortable in no apparent distress. HEAD: Normocephalic and atraumatic EYES: Normal reaction of pupils, equal size. NOSE: Clear with pink turbinates. THROAT: No erythema or exudates. NECK: No masses, no JVD. CHEST: No chest wall deformity. LUNGS: Equal air entry with right basilar inspiratory crackles. No conversational dyspnea CVS: S1 and S2 normal with no audible murmur, regular rhythm. No extra heart sounds ABDOMEN: No hepatosplenomegaly, active bowel sounds. Multiple laparoscopic inci leila sites, approximated, clean and dry. SPINE: No scoliosis or deformity SKIN: No rashes CENTRAL NERVOUS SYSTEM: No focal deficits, tone is normal in all 4 extremities. EXTREMITIES: There is no peripheral edema, clubbing, or cyanosis. Peripheral pulses are intact. - Labs CBC & Chem 7: 03/10/24 04:10 03/11/24 04:10 Labs: Abnormal Lab Results - Last 24 Hours (Table) 03/11/24 Range/Units 04:10 Chloride 109 H (98-107) mmol/L BUN 23 H (7-17) mg/dL Calcium 8.2 L (8.4-10.2) mg/dL Assessment and Plan Assessment: Uterine fibroids, dysmenorrhea, and abnormal uterine bleeding status postoperative day #2 following an elective robotic assisted total laparoscopic h ysterectomy with cystoscopy Postoperative atelectasis and chronic elevated right hemidiaphragm, possible diaphragmatic paralysis Acute hypoxemic respiratory failure, likely secondary to above, recovered and on room air Obstructive sleep apnea, maintained on CPAP at home Morbid obesity, with a BMI of 52.3 kg/m History of prior endometrial ablation Postoperative hypotension, responding to fluid resuscitation Leukocytosis, likely reactive to surgery Elevated D-dimer, nonspecific after recent surgery, clinical suspicion for pulmonary embolism is low. Acute kidney injury, possibly secondary to hypotension and ATN Hyperkalemia History of hypertension History of GERD without esophagitis History of ADHD Plan: The patient was seen and evaluated Labs and medications reviewed VQ scan report revealed low probability for PE Stable and on room air Working well with the incentive spirometer Cleared for discharge from the pulmonary standpoint I have personally seen and examined the patient, performed the documentation and the assessment and plan as written. Number of minutes spent on the visit: 10.
--- NOTE | 2024-03-11 14:26 | P.PN ---
Subjective Progress Note Date: 03/11/24 fu low urine output post hysterectomy. THe patient is doing well without problems. The urine out put is good. Objective - Vital Signs Vital signs: Vital Signs Temp 97.8 F 03/11/24 14:00 Pulse 75 03/11/24 14:00 Resp 18 03/11/24 14:00 BP 122/68 03/11/24 14:23 Pulse Ox 92 L 03/11/24 14:00 FiO2 Intake & Output 03/10/24 03/11/24 03/11/24 18:59 06:59 18:59 Output Total 900 1000 Balance -900 -1000 Output: Urine 900 1000 Uretheral (Vides) 650 Other: Voiding Method Indwelling Catheter Toilet - Labs CBC & Chem 7: 03/10/24 04:10 03/11/24 04:10 Labs: Abnormal Lab Results - Last 24 Hours (Table) 03/11/24 Range/Units 04:10 Chloride 109 H (98-107) mmol/L BUN 23 H (7-17) mg/dL Calcium 8.2 L (8.4-10.2) mg/dL Assessment and Plan Assessment: Impression: Low urine output post op due to volume depletion. No evidence of urinary tract injury Rec: No further gu evaluation required.
[2024-03-11 14:42] VITALS: BP 122/68; PULSE 75; RESP 18; TEMP 97.8
--- NOTE | 2024-03-11 15:05 | P.DS ---
Providers Date of admission: 03/10/24 10:36 Expected date of discharge: 03/11/24 Attending physician: Gracie Ernandez MD Consults: 03/09/24 21:11 Consult Physician Stat Consulting Provider: Ge Silva Consult Reason/Comments: post op today, desatting, cannot wean off o2, no urine output since recover Do you want consulting provider notified?: Yes 03/09/24 22:11 Consult Physician Stat Consulting Provider: Magdaleno Argueta Consult Reason/Comments: scant urine output since postop Do you want consulting provider notified?: Yes 03/09/24 22:14 Consult Physician Stat Consulting Provider: Nahum Panda Consult Reason/Comments: desatting post operatively Do you want consulting provider notified?: Yes Primary care physician: [facility] Course: Ms. Garzon is a 43 year old female who is POD#2 s/p Robotic Assisted Total Laparoscopic Hysterectomy and Cystoscopy. The surgery was complicated by the patient's inability to ventilate properly with the normal degree of trendelenberg and the normal insufflation pressure of 15mmg Hg. However, abdominal insufflation pressure was lowered to 12mmHg and trendelenberg was decreased to 20 degrees. With these changes, the case was able to be completed. Post-operative the patient had very minimal urine output despite multiple fluid boluses. This was determined to be secondary to third spacing of fluid and intravasvular volume depletion. Along these lines, the patient was hypotensive. She was transferred from L&D to the med/surg floor. In addition, the patient was requiring 5L of oxygen and saturating in the low 90s. Medicine, pulmonary, and urology were consulted. LE bilateral US doppler, VQ simeon were negative for PE. Renal US and Abdominal CT were negative for any evidence of ureteral injury. On POD1-2 the patient's urinary output normalized. She was also weaned to room air and did well. Today on POD 2 she is stable for discharge home. Discharge instructions are reviewed with the patient including pelvic rest for 6 weeks and no lifting heavier than 15 pounds for 4 weeks. She will go home with Tylenol. All questions answered. She will follow up in 2 weeks for post-operative exam. Assessment: 43 year old female POD#2 s/p RATLH, Cystoscopy Patient Condition at Discharge: Good Plan - Discharge Summary Discharge Rx Participant: Yes New Discharge Prescriptions: New Acetaminophen Tab [Tylenol] 650 mg PO Q6H PRN #30 tab PRN Reason: Mild Pain (Scale 1 To 3) Acetaminophen Tab [Tylenol] 650 mg PO Q6HR PRN tab PRN Reason: Mild Pain Or Fever > 100.5 Continue Unk Tylenol 1 tab PO DIRECTED PRN PRN Reason: Pain Unk Multi Vitamin 1 tab PO DAILY lisinopriL [Zestril] 40 mg PO DAILY Lisdexamfetamine Dimesylate [Vyvanse] 70 mg PO QAM Famotidine [Pepcid] 20 mg PO DAILY Fexofenadine HCl [Yu Allergy] 180 mg PO DAILY PRN PRN Reason: Allergy Symptoms Escitalopram [Lexapro] 20 mg PO DAILY Discharge Medication List Famotidine [Pepcid] 20 mg PO DAILY 03/04/24 [History] Fexofenadine HCl [Yu Allergy] 180 mg PO DAILY PRN 03/04/24 [History] Lisdexamfetamine Dimesylate [Vyvanse] 70 mg PO QAM 03/04/24 [History] Unk Multi Vitamin 1 tab PO DAILY 03/04/24 [History] Unk Tylenol 1 tab PO DIRECTED PRN 03/04/24 [History] lisinopriL [Zestril] 40 mg PO DAILY 03/04/24 [History] Escitalopram [Lexapro] 20 mg PO DAILY 03/09/24 [History] Acetaminophen Tab [Tylenol] 650 mg PO Q6H PRN #30 tab 03/11/24 [Rx] Acetaminophen Tab [Tylenol] 650 mg PO Q6HR PRN tab 03/11/24 [Rx] Follow up Appointment(s)/Referral(s): Rico Martin MD [Primary Care Provider] - 1 Week Gracie Ernandez MD [STAFF PHYSICIAN] - 2 Weeks Patient Instructions/Handouts: *Surgery [facility] - Scopalamine Patch Instructions, Laparoscopic Hysterectomy (DC) Discharge Disposition: HOME SELF-CARE
--- NOTE | 2024-03-11 16:31 | P.PN ---
Progress Note - Text Progress Note Date: 03/11/24 - Chief Complaint Hypoxia - History of Present Illness This is a 43-year-old patient, follows with [facility] Kandice Yepez, with Dr. Martin. Chronic stable medical conditions include GERD, hypertension, depression, ADHD,. Has been diagnosed obstructive sleep apnea 5 years ago does use a CPAP machine. Patient for dysfunctional uterine bleeding has underwent robotic assisted total laparoscopic hysterectomy and cystoscopy. Patient also had uterine fibroids and failed endometrial ablation. Postoperatively patient oxygen was running low. I was called for a stat consult given that patient's not making any urine. Patient's creatinine preoperatively was 0.6 now 1.88. Patient also requiring a nonrebreather. No prior history of DVTs or PEs. Patient is morbidly obese. With a BMI of 32.3. Patient denies any pulmonary history. No fever no chills. No cough. Portable chest x-ray, ABG, CBC ordered. March 10: Overnight patient was moved to the medical floor. Because of low blood pressure. Blood pressure better this morning. Patient started making urine. Was seen by urology Dr. Dietrich. Is since patient had acute kidney injury likely from hypotension. Making urine this morning. Also hypoxia better. VQ scan low probability for PE. Doppler ultrasound also negative for DVT. CT scan abdomen unremarkable. Decreased appetite. at the bedside. Blood loss anemia. IV iron ordered. On 2 L nasal cannula this m bryceing. March 11: Patient feeling well. Today though decreased appetite. Breathing well. Vides catheter has been out. Making good urine. Creatinine is come down nearly to normal. Did ambulate. Diet discussed. Patient denies any urinary symptoms Social history: Does not smoke or drink alcohol. 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 . Past medical history to include: GERD, hypertension, depression, ADHD, obstructive sleep apnea uses CPAP for last 5 years. Dysfunctional uterine bleeding Physical examination: VITAL SIGNS: 97.8, 75, 17, 123/74, 92% room air GENERAL: In the recliner, comfortable EYES: Pupils equal. Conjunctiva mark l. HEENT: External appearance of nose and ears normal, oral cavity grossly normal. NECK: JVD not raised; masses not palpable. HEART: First and second heart sounds are normal; no edema. LUNGS: Respiratory rate normal, fair entry ABDOMEN: Soft, nontender, liver spleen not palpable, no masses palpable. Vides catheter PSYCH: AOx3, mood and affect tired INVESTIGATIONS, reviewed in the clinical context: March 11: Sodium 140 potassium 4.2 creatinine 1.03 March 10: White count 9.4 hemoglobin 10.3 platelets 189 potassium 4.5 urine 25 creatinine 1.96 Sodium 137 potassium 5.3 BUN 21 creatinine 1.88 ABG: pH 7.42 pCO2 39 pO2 225 oxygen saturation 99.9 FiO2 15 L Chest x-ray film personally reviewed by me: Elevated right diaphragm Assessment plan: -Acute kidney injury. Likely TANVIR from hypotension. Initially anuric. Now making urine..: Resolved Preoperative creatinine was 0.6. Then went up to 1.96.- Followed by urology. Strict I's and O's. -Possible acute on chronic shortness of breath. Patient has underlying obstructive sleep apnea. Element of obstructive sleep apnea. Pulmonary embolism ruled out. [VQ scan low probability. Dopplers are negative for DVT.] Pulmonary followed -Essential hypertension Resume Zestril -Obstructive sleep apnea Patient does use CPAP -Abnormal chest x-ray right diaphragm elevation Dr. Panda from pulmonary following -GERD -Depression Lexapro 20 mg a day -ADHD Vyvanase -Relative hypotension: Improved IV fluids, Discussed with patient and . Resume lisinopril. Follow-up with PCP Thank you Past Medical History Past Medical History: GERD/Reflux, Hypertension, Sleep Apnea/CPAP/BIPAP, Thyroid Disorder Additional Past Medical History / Comment(s): VARICOSE VEINS, uses CPAP, past hx thyroid nodules. season allergies History of Any Multi-Drug Resistant Organisms: None Reported Past Surgical History: Back Surgery, Bariatric Surgery, Section, Cholecystectomy, Orthopedic Surgery, Tubal Ligation Additional Past Surgical History / Comment(s): C SECT X 2,LT FOOT SURG,WISDOM TEETH, gastric sleeve, PARTIAL THYROIDECTOMY Past Anesthesia/Blood Transfusion Reactions: Family History of Problems w/ Anesthesia, Motion Sickness, Postoperative Nausea & Vomiting (PONV) Additional Past Anesthesia/Blood Transfusion Reaction / Comm: "DAD HAS PROBLEMS WITH ANESTHESIA STATES DOES NOT REMEMBER WHAT BUT REMEMBERS THERE WAS A COMPLICATION.", Pt has very difficult time coming out of anesthesia & severe PONV Past Psychological History: Anxiety, Depression Smoking Status: Never smoker Past Alcohol Use History: Rare Past Drug Use History: None Reported
== END 2024-03-11 15:47 | disposition home or self-care (01) ==
LOC: OR 05:50 → 4FBP 10:43 → 4SSUR 03-10 01:11 → OR 03-10 10:36
PROVIDERS: ADMIT Obstetrics & Gynecology; ATTEND Obstetrics & Gynecology
DX: D25.1 Intramural leiomyoma of uterus (principal); N80.03 Adenomyosis of the uterus; N88.8 Other specified noninflammatory disorders of cervix uteri; N80.121 Deep endometriosis of right ovary; N73.6 Female pelvic peritoneal adhesions (postinfective); N99.0 Postprocedural (acute) (chronic) kidney failure; N17.9 Acute kidney failure, unspecified; J98.11 Atelectasis; J96.01 Acute respiratory failure with hypoxia; I95.81 Postprocedural hypotension; D72.829 Elevated white blood cell count, unspecified; R79.89 Other specified abnormal findings of blood chemistry; E87.5 Hyperkalemia; K21.9 Gastro-esophageal reflux disease without esophagitis; I10 Essential (primary) hypertension; G47.30 Sleep apnea, unspecified; E89.0 Postprocedural hypothyroidism; F32.A Depression, unspecified; F41.9 Anxiety disorder, unspecified; G47.33 Obstructive sleep apnea (adult) (pediatric); F90.9 Attention-deficit hyperactivity disorder, unspecified type; D50.0 Iron deficiency anemia secondary to blood loss (chronic); R91.8 Other nonspecific abnormal finding of lung field; E66.01 Morbid (severe) obesity due to excess calories; Z68.43 Body mass index [BMI] 50.0-59.9, adult; Z98.51 Tubal ligation status; Z79.899 Other long term (current) drug therapy
CPT/HCPCS: 58570; S2900; 36600; 71045; 74176; 76770; 78582; 80048; 80053; 81001; 81025; 82805; 85025; 85379; 88307; 93970; 94760; 96361; 96365; 96366; 96372; 96375; 96376